=== PATIENT | male | born 1940 | race Caucasian/White ===

== ENCOUNTER 2020-03-07 11:04 | Emergency (ER) | payer SELFPAY ==
[~2020-03-07] VITALS: Ht 175.3 cm; Wt 112.0 kg
--- NOTE | 2020-03-07 11:46 | NUR ---
BIBS FROM HOME TO ER BED 6. AAOX4. NOT IN RESP DISTRESS, BREATHING EVEN AND UNLABORED. AMBULATORY. CAME IN FOR L & R ABDOMINAL PAIN X 7 DAYS. PER PT, HE STARTED ON A DIET PROGRAM AND WAS GIVEN "WATER PILLS". WHEN HE TOOK IT THAT IS WHEN THE PAIN STARTED. PAIN IS RATED 8/10 ACHING CONSTANT. PT HAVENT HAD A BM FOR THE PAST 7 DAYS. STATES THAT HE HASNT BEEN EATING AND REPORTS THAT HE IS FEELING WEAK. AWAITING MD FOR EVAL.
[2020-03-07 12:31] LABS: BASOPHILS % (AUTO) 0.1 % (0.0-2.0); EOSINOPHILS % (AUTO) 0.1 % (0.0-6.0); HEMATOCRIT 44 % (39-51); HEMOGLOBIN 14.4 g/dL (13.5-17.5); LYMPHOCYTES # (AUTO) 0.9 /CMM (0.8-4.8); LYMPHOCYTES % (AUTO) 8.9 % (20.0-44.0); MEAN CORPUSCULAR HGB CONC 33 g/dl (31.0-36.0); MEAN CORPUSCULAR VOLUME 88 fL (80-96); MONOCYTES # (AUTO) 1.1 /CMM (0.1-1.30); NEUTROPHILS # (AUTO) 8.2 /CMM (1.8-8.9); NEUTROPHILS % (AUTO) 79.9 % (43.0-81.0); PLATELET COUNT (AUTO) 141 /CMM (150-450); RED BLOOD CELL COUNT(AUTO) 4.99 MIL/uL (4.5-6.0); WHITE BLOOD COUNT (AUTO) 10.2 K/uL (4.3-11.0)
[2020-03-07 12:38] LABS: CALCIUM, SERUM 9.4 mg/dL (8.5-10.1); CARBON DIOXIDE 20 mmol/L (21-32); CHLORIDE 90 mmol/L (98-107); GLUCOSE 176 mg/dL (74-106); SODIUM SERUM 122 mmol/L (136-145); UREA NITROGEN, BLOOD 14 mg/dL (7-18)
[2020-03-07 12:51] LABS: ALKALINE PHOSPHATASE 55 U/L (46-116); ASPARTATE AMINOTRANSFERASE 29 U/L (15-37); BILIRUBIN,DIRECT 0.5 mg/dL (0.0-0.2); BILIRUBIN,TOTAL 1.9 mg/dL (0.2-1.0)
[2020-03-07 12:52] LABS: ALANINE AMINOTRANSFERASE 28 U/L (12-78); ALBUMIN 4.1 g/dL (3.4-5.0); LIPASE 63 U/L (73-393); TOTAL PROTEIN, SERUM 8.6 g/dL (6.4-8.2)
[2020-03-07 13:21] LABS: APPEARANCE,URINE Clear (CLEAR); BILIRUBIN,URINE Negative (NEGATIVE); BLOOD, URINE Trace-lysed Ery/uL (NEGATIVE); COLOR,URINE Yellow (YELLOW); KETONES,URINE Trace (NEGATIVE); LEUKOCYTE ESTERASE ,URINE Negative (NEGATIVE); NITRITE, URINE Negative (NEGATIVE); PH,URINE 5.5 (5.0-8.0); PROTEIN,URINE Negative (NEGATIVE); UGLUCOSE Negative (NEGATIVE); UROBILINOGEN,URINE 0.2 EU/dL (0.2)
[2020-03-07 13:23] LABS: BACTERIA,URINE Rare /HPF (None Seen); RBC,URINE 0-2 /HPF (0-2); SQUAMOUS EPITHELIAL CELL,UR None Seen /HPF (None Seen); WBC,URINE 0-2 /HPF (0-3)
[2020-03-07] MEDS ORDERED: HYDROCODONE/APAP 5/325MG TABLET ONE (13:45)
[2020-03-07] MEDS: HYDROCODONE/APAP 5/325MG TABLET PO ONE (13:47)
--- NOTE | 2020-03-07 14:58 | NUR ---
Patient discharged to home in stable condition. Written and verbal after care instructions given. Patient verbalizes understanding of instruction. Pt ambulatory with a steady gait
[2020-03-07 14:59] VITALS: BP 151/94
== END 2020-03-07 14:59 | disposition home or self-care (01) ==
LOC: ER 11:04
DX: R00.2 Palpitations (principal); R42 Dizziness and giddiness; T50.5X5A Adverse effect of appetite depressants, initial encounter; R53.83 Other fatigue; N13.30 Unspecified hydronephrosis; K86.1 Other chronic pancreatitis; K57.30 Diverticulosis of large intestine without perforation or abscess without bleeding; K44.9 Diaphragmatic hernia without obstruction or gangrene; K40.90 Unilateral inguinal hernia, without obstruction or gangrene, not specified as recurrent; I10 Essential (primary) hypertension; E78.5 Hyperlipidemia, unspecified; E11.9 Type 2 diabetes mellitus without complications; E78.00 Pure hypercholesterolemia, unspecified; Y92.89 Other specified places as the place of occurrence of the external cause
CPT/HCPCS: 36415; 71045-TC; 80048-TC; 80076-TC; 81000-TC; 82962-TC; 83690-TC; 83880; 84484-TC; 85025-TC

== ENCOUNTER 2022-08-13 22:12 | Emergency (ER) | payer OTHER ==
[~2022-08-13] VITALS: Ht 175.3 cm; Wt 111.1 kg
--- NOTE | 2022-08-13 22:51 | NUR ---
BIB FROM A BAR TO ER BED 14. ALERT AND AWAKE ABLE TO ANSWER QUESTIONS. BROUGHT IN D/T PT SLID OF A BARSTOLL AND HIT THE BACK OF HIS HEAD ON A BAR STOOL. PT ADMITS TO KO. DENIES ANY BLOOD THINNER USE. PT ADMITS TO DRINKING. NO NOTED INJURY. AWAITING MD FOR EVAL
--- NOTE | 2022-08-13 23:10 | NUR ---
BS 188
--- NOTE | 2022-08-14 06:30 | NUR ---
pt requesting to be discharged home, Patient discharged to home in stable condition. Written and verbal after care instructions given. Patient verbalizes understanding of instruction.Patient is awake and alert to self, day, and place. pt ambulatory with a steady gait
[2022-08-14 06:59] VITALS: BP 119/65
== END 2022-08-14 06:30 | disposition home or self-care (01) ==
LOC: ER 22:17
DX: S00.03XA Contusion of scalp, initial encounter (principal); F10.129 Alcohol abuse with intoxication, unspecified; I10 Essential (primary) hypertension; E11.9 Type 2 diabetes mellitus without complications; E78.00 Pure hypercholesterolemia, unspecified; W22.8XXA Striking against or struck by other objects, initial encounter; Y93.89 Activity, other specified; Y92.89 Other specified places as the place of occurrence of the external cause; Y99.8 Other external cause status
CPT/HCPCS: 70450-TC; 72125-TC; 82962-TC

== ENCOUNTER 2023-06-14 02:45 | Inpatient (IN) | payer MEDICARE, OTHER ==
[2023-06-14] VITALS (75 sets, daily range): BP systolic 38–132; BP diastolic 19–89; TEMP 97.2–98.9; O2SAT 87–99
[~2023-06-14] VITALS: Ht 175.3 cm; Wt 101.6 kg
[2023-06-14] MEDS ORDERED: methylPREDNISolone SOD SUCC 125 MG/2ML VIAL ONE (02:59)
[2023-06-14] MEDS ORDERED: IPRATROPIUM NEB FS 0.5 MG/2.5 ML AMPUL.NEB NEB ONE (03:00)
[2023-06-14] MEDS ORDERED: methylPREDNISolone SOD SUCC 125 MG/2ML VIAL IV ONE (03:00)
[2023-06-14] MEDS ORDERED: ALBUTEROL FS 2.5 MG/3 ML VIAL.NEB NEB ONE (03:00)
[2023-06-14 03:17] LABS: ABG BASE EXCESS -4.5 mmol/L; ABG OXYGEN SATURATION 99.2 % (92.0-98.5); ABG PCO2 20.7 mmHg (35.0-45.0); ABG PO2 220.3 mmHg (75.0-100.0); ABG TOTAL HEMOGLOBIN 14.1 G/dL (13.5-18.0); MetHb 0.4 % (0.0-1.5); O2Hb 98.8 % (94.0-97.0); SITE, ABG Right Radial
[2023-06-14] MEDS ORDERED: ALBUTEROL FS 2.5 MG/3 ML VIAL.NEB ONE (03:18)
[2023-06-14] MEDS ORDERED: IPRATROPIUM NEB FS 0.5 MG/2.5 ML AMPUL.NEB ONE (03:19)
[2023-06-14] MEDS ORDERED: IOHEXOL-350 100 ML VIAL IV ONE (03:21)
[2023-06-14] MEDS ORDERED: CEFEPIME 1 GM in IV D5W 50 ML IV ONE (03:30)
[2023-06-14] MEDS ORDERED: VANCOMYCIN 1 GM in IV D5W 250 ML IV ONE (03:30)
[2023-06-14 03:48] LABS: BASOPHILS # (AUTO) 0.1 K/uL (0.0-0.2); BASOPHILS % (AUTO) 0.7 % (0.0-2.0); EOSINOPHILS % (AUTO) 0.2 % (0.0-6.0); HEMATOCRIT 41 % (39-51); HEMOGLOBIN 13.5 g/dL (13.5-17.5); LYMPHOCYTES # (AUTO) 0.3 K/uL (0.8-4.8); LYMPHOCYTES % (AUTO) 4.4 % (20.0-44.0); MEAN CORPUSCULAR HEMOGLOBIN 27 PG (26.0-33.0); MEAN CORPUSCULAR HGB CONC 33 g/dl (31.0-36.0); MEAN CORPUSCULAR VOLUME 81 fL (80-96); MONOCYTES # (AUTO) 0.6 K/uL (0.1-1.30); MONOCYTES % (AUTO) 7.9 % (2.0-12.0); NEUTROPHILS # (AUTO) 6.5 K/uL (1.8-8.9); NEUTROPHILS % (AUTO) 86.8 % (43.0-81.0); PLATELET COUNT (AUTO) 114 K/uL (150-450); RED CELL DISTRIBUTION WIDTH 15.1 % (11.5-15.0); WHITE BLOOD COUNT (AUTO) 7.5 K/uL (4.3-11.0)
[2023-06-14 04:26] LABS: CALCIUM, SERUM 8.9 mg/dL (8.5-10.1); CARBON DIOXIDE 19 mmol/L (21-32); CHLORIDE 98 mmol/L (98-107); CREATININE 1.3 mg/dL (0.6-1.3); GLUCOSE 209 mg/dL (74-106); POTASSIUM 3.5 mmol/L (3.5-5.1); SODIUM SERUM 130 mmol/L (136-145); UREA NITROGEN, BLOOD 30 mg/dL (7-18)
[2023-06-14] MEDS ORDERED: MIDAZOLAM HCL 100 MG in IV NS 0.9% 80 ML IV PRN ×2 (04:30→07:00)
[2023-06-14] MEDS ORDERED: ETOMIDATE 2 MG/ML VIAL IV ONE ×2 (04:30→17:21)
[2023-06-14] MEDS ORDERED: ROCURONIUM BROMIDE 100 MG/10 ML VIAL IV ONE (04:30)
[2023-06-14] MEDS ORDERED: IV NS 0.9% 1,000 ML BAG IV ONE (04:30)
[2023-06-14] MEDS ORDERED: ACETAMINOPHEN ES 500 MG TABLET NG ONE (04:30)
[2023-06-14 04:36] LABS: ALANINE AMINOTRANSFERASE 28 U/L (12-78); ALBUMIN 3.3 g/dL (3.4-5.0); ALKALINE PHOSPHATASE 56 U/L (46-116); ASPARTATE AMINOTRANSFERASE 55 U/L (15-37); BILIRUBIN,DIRECT 0.6 mg/dL (0.0-0.2); BILIRUBIN,TOTAL 1.4 mg/dL (0.2-1.0); NT-PRO BNP 1320 pg/mL (0-125); TOTAL PROTEIN, SERUM 7.9 g/dL (6.4-8.2)
[2023-06-14] MEDS ORDERED: PROPOFOL 100 ML ONE (04:45)
[2023-06-14 04:48] LABS: LACTIC ACID 3.7 mmol/L (0.4-2.0)
[2023-06-14] MEDS ORDERED: AMIODARONE 150 MG/3 ML VIAL IV ONE ×2 (04:56→05:00)
[2023-06-14] MEDS ORDERED: RACEPINEPHRINE HCL 2.25% NEB 0.5 ML VIAL.NEB IH ONE (05:00)
[2023-06-14] MEDS ORDERED: PROPOFOL 100 ML IV PRN (05:00)
[2023-06-14] MEDS: AMIODARONE 450 MG in IV D5W 241 ML IV PRN ×2 (05:17→12:58)
[2023-06-14] MEDS ORDERED: CEFEPIME 1 GM VIAL ONE (05:20)
[2023-06-14] MEDS ORDERED: VANCOMYCIN 1 GM /D5W 250 ML PB IV ONE (05:20)
[2023-06-14] MEDS ORDERED: ACETAMINOPHEN ES 500 MG TABLET ONE (05:54)
[2023-06-14 05:59] LABS: ABG BASE EXCESS -14.3 mmol/L; ABG OXYGEN SATURATION 99.2 % (92.0-98.5); ABG PCO2 48.7 mmHg (35.0-45.0); ABG PO2 255.7 mmHg (75.0-100.0); ABG TOTAL HEMOGLOBIN 14.1 G/dL (13.5-18.0); COHb 0.3 % (0.5-1.5); MetHb 0.8 % (0.0-1.5); O2Hb 98.1 % (94.0-97.0); SITE, ABG Right Radial
[2023-06-14] MEDS ORDERED: DEXTROSE 50%-WATER 50 ML DISP.SYRIN IV PRN (06:00)
[2023-06-14] MEDS ORDERED: MAGNESIUM HYDROXIDE 30 ML UDC PO PRN (06:00)
[2023-06-14] MEDS ORDERED: ACETAMINOPHEN 325 MG TABLET PO PRN (06:00)
[2023-06-14] MEDS ORDERED: MAG HYDROX/AL HYDROX/SIMETH 30 ML UDC PO PRN (06:00)
[2023-06-14] MEDS ORDERED: ONDANSETRON HCL/PF 4 MG/2 ML VIAL IVP PRN (06:00)
[2023-06-14] MEDS ORDERED: ACETAMINOPHEN 650 MG/SUPP.RECT RC ONE (06:00)
[2023-06-14] MEDS ORDERED: IV NS 0.9% 1,000 ML IV ONE (06:00)
[2023-06-14] MEDS ORDERED: ENOXAPARIN SODIUM 100 MG/ML DISP.SYRIN SQ ONE ×2 (06:00→06:42)
[2023-06-14] MEDS ORDERED: ZOLPIDEM TARTRATE 5 MG TABLET PO PRN (06:00)
[2023-06-14] MEDS ORDERED: Z GUARD REMEDY 4 OZ OINT TP PRN (06:00)
[2023-06-14] MEDS ORDERED: ACETAMINOPHEN 650 MG/SUPP.RECT RC PRN (06:00)
[2023-06-14 06:44] LABS: THYROID STIMULATING HORMONE 1.092 uIU/mL (0.358-3.74)
[2023-06-14] MEDS ORDERED: FENTANYL CITRAT IV 2,500 MCG in IV NS 0.9% 200 ML IV PRN (07:00)
[2023-06-14] MEDS ORDERED: MORPHINE SULFATE INJ 4 MG/ML DISP.SYRIN IV PRN (07:30)
[2023-06-14] MEDS ORDERED: BENA40TA67 PO (07:41)
[2023-06-14] MEDS ORDERED: VANCOMYCIN 500 MG in IV D5W 100 ML IV ONE (08:00)
[2023-06-14] MEDS: dexaMETHasone SOD PHOSPHATE 10 MG/ML VIAL IV SCH ×2 (08:03→09:00)
[2023-06-14] MEDS: NOREPINEPHRINE 8 MG in IV NS 0.9% 242 ML IV PRN ×3 (08:20→11:05)
[2023-06-14] MEDS ORDERED: NOREPINEPHRINE 8 MG in IV NS 0.9% 242 ML IV PRN (08:30)
[2023-06-14] MEDS ORDERED: IV D5/ 0.9% NACL 1,000 ML IV PRN (10:00)
[2023-06-14] MEDS ORDERED: AMIODARONE 450 MG in IV D5W 250 ML IV PRN (10:00)
[2023-06-14 10:14] LABS: ABG BASE EXCESS -23.6 mmol/L; ABG OXYGEN SATURATION 96.8 % (92.0-98.5); ABG PCO2 37.1 mmHg (35.0-45.0); ABG PH 6.948 (7.350-7.450); ABG PO2 131.5 mmHg (75.0-100.0); ABG TOTAL HEMOGLOBIN 14.1 G/dL (13.5-18.0); COHb 0.3 % (0.5-1.5); MetHb 0.3 % (0.0-1.5); O2Hb 96.2 % (94.0-97.0); PEEP,BG 5 cm H2O; SITE, ABG Right Radial; VENT MODE, BG AC 80%; VT, ABG 500 mL
[2023-06-14] MEDS ORDERED: SODIUM BICARBONATE SYR 50 MEQ/50 ML DISP.SYRIN ONE (10:27)
[2023-06-14] MEDS ORDERED: SODIUM BICARBONATE SYR 50 MEQ/50 ML DISP.SYRIN IV ONE ×2 (11:30→16:00)
[2023-06-14] MEDS: PHENYLEPHRINE 100 MG in IV NS 0.9% 240 ML IV PRN ×2 (11:30→18:26)
[2023-06-14] MEDS: BLOOD SUGAR DIAGNOSTIC 1 EACH STRIP IN SCH ×3 (12:00→18:26)
[2023-06-14] MEDS: INSULIN REGULAR, HUMAN 100 UNIT/ML 3 ML VIAL SQ PRN ×2 (13:48→18:27)
[2023-06-14] MEDS: PANTOPRAZOLE 40 MG VIAL IV SCH (13:54)
[2023-06-14] MEDS ORDERED: NOREPINEPHRINE 32 MG in IV NS 0.9% 218 ML IV PRN (14:00)
[2023-06-14] MEDS: CEFEPIME 2 GM in IV D5W 100 ML IV SCH ×2 (14:04→22:51)
[2023-06-14 15:22] LABS: ABG BASE EXCESS -19.3 mmol/L; ABG PCO2 37.9 mmHg (35.0-45.0); ABG PH 7.054 (7.350-7.450); ABG PO2 101.8 mmHg (75.0-100.0); ABG TOTAL HEMOGLOBIN 14.3 G/dL (13.5-18.0); AaDO2 573.3 mmHg; COHb 0.3 % (0.5-1.5); MetHb 0.5 % (0.0-1.5); O2Hb 95.2 % (94.0-97.0); SITE, ABG Right Radial
[2023-06-14] MEDS: PROPOFOL 100 ML IV PRN ×2 (16:16→21:09)
[2023-06-14] MEDS: Sodium Bicarbonate 150 MEQ in IV D5W 1,000 ML IV SCH (16:49)
[2023-06-14] MEDS ORDERED: ROCURONIUM BROMIDE 50 MG/5 ML IV ONE (17:21)
[2023-06-14] MEDS: ENOXAPARIN SODIUM 100 MG/ML DISP.SYRIN SQ SCH (21:28)
[2023-06-14 22:37] LABS: BASOPHILS % (AUTO) 0.1 % (0.0-2.0); EOSINOPHILS # (AUTO) 0.1 K/uL (0.0-0.7); EOSINOPHILS % (AUTO) 0.5 % (0.0-6.0); HEMATOCRIT 42 % (39-51); HEMOGLOBIN 13.2 g/dL (13.5-17.5); LYMPHOCYTES # (AUTO) 0.7 K/uL (0.8-4.8); MEAN CORPUSCULAR HEMOGLOBIN 26 PG (26.0-33.0); MEAN CORPUSCULAR HGB CONC 32 g/dl (31.0-36.0); MEAN CORPUSCULAR VOLUME 83 fL (80-96); MONOCYTES # (AUTO) 1.3 K/uL (0.1-1.30); MONOCYTES % (AUTO) 7.6 % (2.0-12.0); NEUTROPHILS # (AUTO) 14.7 K/uL (1.8-8.9); NEUTROPHILS % (AUTO) 87.8 % (43.0-81.0); PLATELET COUNT (AUTO) 150 K/uL (150-450); RED BLOOD CELL COUNT(AUTO) 5.05 MIL/uL (4.5-6.0); WHITE BLOOD COUNT (AUTO) 16.8 K/uL (4.3-11.0)
[2023-06-14 22:49] LABS: CALCIUM, SERUM 7.8 mg/dL (8.5-10.1); CARBON DIOXIDE 14 mmol/L (21-32); CHLORIDE 101 mmol/L (98-107); CREATININE 2.7 mg/dL (0.6-1.3); GLUCOSE 371 mg/dL (74-106); POTASSIUM 3.6 mmol/L (3.5-5.1); SODIUM SERUM 136 mmol/L (136-145); UREA NITROGEN, BLOOD 41 mg/dL (7-18)
[2023-06-15] VITALS (92 sets, daily range): BP systolic 73–122; BP diastolic 58–96; TEMP 96.8–98.5; O2SAT 65–100
[2023-06-15] MEDS: BLOOD SUGAR DIAGNOSTIC 1 EACH STRIP IN SCH ×4 (00:44→23:57)
[2023-06-15] MEDS: INSULIN REGULAR, HUMAN 100 UNIT/ML 3 ML VIAL SQ PRN ×3 (00:47→18:20)
[2023-06-15 01:11] LABS: ABG BASE EXCESS -7.1 mmol/L; ABG OXYGEN SATURATION 98.5 % (92.0-98.5); ABG PCO2 24.3 mmHg (35.0-45.0); ABG PO2 132.2 mmHg (75.0-100.0); ABG TOTAL HEMOGLOBIN 14.2 G/dL (13.5-18.0); AaDO2 556.5 mmHg; COHb 0.1 % (0.5-1.5); MetHb 0.3 % (0.0-1.5); O2Hb 98.1 % (94.0-97.0); PEEP,BG 0 cm H2O; SITE, ABG Right Radial
[2023-06-15] MEDS: PROPOFOL 100 ML IV PRN ×5 (01:26→22:09)
[2023-06-15] MEDS: PHENYLEPHRINE 100 MG in IV NS 0.9% 240 ML IV PRN ×4 (01:39→23:59)
[2023-06-15 05:07] LABS: ABG OXYGEN SATURATION 97.6 % (92.0-98.5); ABG PCO2 24.1 mmHg (35.0-45.0); ABG PH 7.463 (7.350-7.450); ABG PO2 100.2 mmHg (75.0-100.0); ABG TOTAL HEMOGLOBIN 14.1 G/dL (13.5-18.0); AaDO2 588.7 mmHg; COHb 0.2 % (0.5-1.5); MetHb 0.3 % (0.0-1.5); O2Hb 97.1 % (94.0-97.0); PEEP,BG 0 cm H2O; SITE, ABG Right Radial
[2023-06-15 05:23] LABS: BASOPHILS % (AUTO) 0.1 % (0.0-2.0); EOSINOPHILS # (AUTO) 0.2 K/uL (0.0-0.7); EOSINOPHILS % (AUTO) 1.3 % (0.0-6.0); HEMATOCRIT 40 % (39-51); HEMOGLOBIN 12.9 g/dL (13.5-17.5); LYMPHOCYTES # (AUTO) 0.6 K/uL (0.8-4.8); LYMPHOCYTES % (AUTO) 3.8 % (20.0-44.0); MEAN CORPUSCULAR HEMOGLOBIN 26 PG (26.0-33.0); MEAN CORPUSCULAR HGB CONC 32 g/dl (31.0-36.0); MEAN CORPUSCULAR VOLUME 81 fL (80-96); MONOCYTES # (AUTO) 1.1 K/uL (0.1-1.30); NEUTROPHILS # (AUTO) 13.7 K/uL (1.8-8.9); NEUTROPHILS % (AUTO) 87.8 % (43.0-81.0); PLATELET COUNT (AUTO) 143 K/uL (150-450); RED CELL DISTRIBUTION WIDTH 15.7 % (11.5-15.0); WHITE BLOOD COUNT (AUTO) 15.7 K/uL (4.3-11.0)
[2023-06-15 05:58] LABS: ALANINE AMINOTRANSFERASE 480 U/L (12-78); ALBUMIN 2.1 g/dL (3.4-5.0); ALKALINE PHOSPHATASE 52 U/L (46-116); ASPARTATE AMINOTRANSFERASE 804 U/L (15-37); CALCIUM, SERUM 7.6 mg/dL (8.5-10.1); CARBON DIOXIDE 18 mmol/L (21-32); CHLORIDE 101 mmol/L (98-107); CREATININE 2.8 mg/dL (0.6-1.3); GLUCOSE 350 mg/dL (74-106); MAGNESIUM 2.3 mg/dL (1.8-2.4); PHOSPHORUS 2.7 mg/dL (2.5-4.9); POTASSIUM 3.1 mmol/L (3.5-5.1); SODIUM SERUM 135 mmol/L (136-145); TOTAL PROTEIN, SERUM 6.1 g/dL (6.4-8.2); UREA NITROGEN, BLOOD 46 mg/dL (7-18)
[2023-06-15 06:03] LABS: CHOLESTEROL 92 mg/dL (<200); CREATINE KINASE, TOTAL 1419 U/L (39-308); HDL CHOLESTEROL 33 mg/dL (40-60); LDL 45 mg/dL (0-99); THYROID STIMULATING HORMONE 0.293 uIU/mL (0.358-3.74); TRIGLYCERIDES 167 mg/dL (30-150); URIC ACID 7.3 mg/dL (2.6-7.2)
[2023-06-15] MEDS: Sodium Bicarbonate 150 MEQ in IV D5W 1,000 ML IV SCH (06:40)
[2023-06-15] MEDS ORDERED: VANCOMYCIN 1.25 GM in IV D5W 250 ML IV SCH (08:00)
[2023-06-15] MEDS ORDERED: EPINEPHRINE (1:10,000) SYRINGE 1 MG/10 ML DISP.SYRIN IVP ONE (08:15)
[2023-06-15] MEDS ORDERED: SODIUM BICARBONATE SYR 50 MEQ/50 ML DISP.SYRIN IV ONE (08:16)
[2023-06-15] MEDS ORDERED: ENOXAPARIN SODIUM 40 MG/0.4 ML DISP.SYRIN SQ SCH (09:00)
[2023-06-15] MEDS: dexaMETHasone SOD PHOSPHATE 10 MG/ML VIAL IV SCH (09:04)
[2023-06-15] MEDS: PANTOPRAZOLE 40 MG VIAL IV SCH (09:04)
[2023-06-15] MEDS: ENOXAPARIN SODIUM 100 MG/ML DISP.SYRIN SQ SCH ×2 (09:08→22:01)
[2023-06-15] MEDS ORDERED: MAG HYDROX/AL HYDROX/SIMETH 30 ML UDC NG PRN (11:04)
[2023-06-15] MEDS ORDERED: MAGNESIUM HYDROXIDE 30 ML UDC NG PRN (11:04)
[2023-06-15 14:41] LABS: ABG OXYGEN SATURATION 95.2 % (92.0-98.5); ABG PCO2 26.7 mmHg (35.0-45.0); ABG PH 7.489 (7.350-7.450); ABG PO2 76.8 mmHg (75.0-100.0); ABG TOTAL HEMOGLOBIN 13.8 G/dL (13.5-18.0); AaDO2 321.6 mmHg; COHb 0.3 % (0.5-1.5); MetHb 0.2 % (0.0-1.5); O2Hb 94.7 % (94.0-97.0); SITE, ABG Right Brachial; VENT MODE, BG AC 22 500 60% +0
[2023-06-15] MEDS: CEFEPIME 1 GM in IV D5W 50 ML IV SCH (22:00)
[2023-06-15 22:11] LABS: APPEARANCE,URINE SLIGHTLY CLOUDY (CLEAR); BILIRUBIN,URINE NEGATIVE (NEGATIVE); BLOOD, URINE 3+ Ery/uL (NEGATIVE); COLOR,URINE YELLOW (YELLOW); KETONES,URINE NEGATIVE (NEGATIVE); LEUKOCYTE ESTERASE ,URINE NEGATIVE (NEGATIVE); NITRITE, URINE NEGATIVE (NEGATIVE); PH,URINE 5.5 (5.0-8.0); PROTEIN,URINE 1+ mg/dl (NEGATIVE); UGLUCOSE NEGATIVE (NEGATIVE); UROBILINOGEN,URINE 0.2 EU/dL (0.2)
[2023-06-15 22:13] LABS: CREATININE, URINE 53.9 MG/DL (30.0-125.0); URINE TOTAL PROTEIN 56.7 mg/dL (0-11.9)
[2023-06-15 22:23] LABS: ADD URINE CULTURE NO; BACTERIA,URINE None seen /HPF (None Seen); RBC,URINE 51-80 /HPF (0-2); WBC,URINE 0-2 /HPF (0-3)
[2023-06-15 22:24] LABS: COARSE GRANULAR CASTS,URINE Many /LPF (None Seen); FINE GRANULAR CASTS,URINE Few /LPF (None Seen); URINE AMORPHOUS URATE Many /HPF (None Seen)
[2023-06-15 23:42] LABS: EOSINOPHIL,URINE None Seen
[2023-06-16] VITALS (89 sets, daily range): BP systolic 89–125; BP diastolic 70–95; TEMP 96.7–97.8; O2SAT 94–97
[2023-06-16] MEDS: INSULIN REGULAR, HUMAN 100 UNIT/ML 3 ML VIAL SQ PRN ×4 (00:03→17:28)
[2023-06-16] MEDS: PROPOFOL 100 ML IV PRN ×5 (02:06→20:27)
[2023-06-16 04:21] LABS: BASOPHILS % (AUTO) 0.1 % (0.0-2.0); EOSINOPHILS % (AUTO) 0.1 % (0.0-6.0); HEMATOCRIT 39 % (39-51); HEMOGLOBIN 12.7 g/dL (13.5-17.5); LYMPHOCYTES # (AUTO) 0.7 K/uL (0.8-4.8); LYMPHOCYTES % (AUTO) 4.3 % (20.0-44.0); MEAN CORPUSCULAR HEMOGLOBIN 26 PG (26.0-33.0); MEAN CORPUSCULAR HGB CONC 33 g/dl (31.0-36.0); MEAN CORPUSCULAR VOLUME 80 fL (80-96); MONOCYTES # (AUTO) 1.3 K/uL (0.1-1.30); MONOCYTES % (AUTO) 7.4 % (2.0-12.0); NEUTROPHILS # (AUTO) 15.3 K/uL (1.8-8.9); NEUTROPHILS % (AUTO) 88.1 % (43.0-81.0); PLATELET COUNT (AUTO) 124 K/uL (150-450); RED BLOOD CELL COUNT(AUTO) 4.85 MIL/uL (4.5-6.0); RED CELL DISTRIBUTION WIDTH 15.8 % (11.5-15.0); WHITE BLOOD COUNT (AUTO) 17.4 K/uL (4.3-11.0)
[2023-06-16 04:37] LABS: CALCIUM, SERUM 8.1 mg/dL (8.5-10.1); CARBON DIOXIDE 25 mmol/L (21-32); CHLORIDE 103 mmol/L (98-107); CREATININE 2.8 mg/dL (0.6-1.3); GLUCOSE 317 mg/dL (74-106); MAGNESIUM 2.2 mg/dL (1.8-2.4); PHOSPHORUS 2.8 mg/dL (2.5-4.9); SODIUM SERUM 140 mmol/L (136-145); UREA NITROGEN, BLOOD 55 mg/dL (7-18)
[2023-06-16 04:38] LABS: TRIGLYCERIDES 284 mg/dL (30-150)
[2023-06-16 04:47] LABS: POTASSIUM 2.8 mmol/L (3.5-5.1)
[2023-06-16] MEDS: BLOOD SUGAR DIAGNOSTIC 1 EACH STRIP IN SCH ×3 (05:08→17:25)
[2023-06-16] MEDS: POTASSIUM CL. PREMIX PERIPHER. 50 ML IV SCH ×4 (06:38→09:31)
[2023-06-16] MEDS: PHENYLEPHRINE 100 MG in IV NS 0.9% 240 ML IV PRN ×3 (07:35→23:10)
[2023-06-16] MEDS ORDERED: VANCOMYCIN 1.5 GM in IV D5W 500ml IV SCH (08:00)
[2023-06-16 08:06] LABS: PTH, INTACT 158 pg/mL (15-65)
[2023-06-16 08:08] LABS: ABG BASE EXCESS -0.3 mmol/L; ABG OXYGEN SATURATION 96.3 % (92.0-98.5); ABG PCO2 25.8 mmHg (35.0-45.0); ABG PH 7.526 (7.350-7.450); ABG TOTAL HEMOGLOBIN 14.1 G/dL (13.5-18.0); AaDO2 316.4 mmHg; COHb 0.4 % (0.5-1.5); MetHb 0.1 % (0.0-1.5); O2Hb 95.8 % (94.0-97.0); SITE, ABG Right Radial
[2023-06-16] MEDS: dexaMETHasone SOD PHOSPHATE 10 MG/ML VIAL IV SCH (08:28)
[2023-06-16] MEDS: PANTOPRAZOLE 40 MG VIAL IV SCH (08:29)
[2023-06-16] MEDS: ENOXAPARIN SODIUM 100 MG/ML DISP.SYRIN SQ SCH (09:10)
[2023-06-16] MEDS: CEFEPIME 1 GM in IV D5W 50 ML IV SCH ×2 (09:55→20:27)
[2023-06-16 11:07] LABS: *SPE A/G RATIO 0.7 (0.7-1.7); *SPE ALBUMIN 2.3 g/dL (2.9-4.4); *SPE ALPHA-1-GLOBULIN 0.4 g/dL (0.0-0.4); *SPE ALPHA-2-GLOBULIN 0.9 g/dL (0.4-1.0); *SPE BETA GLOBULIN 0.6 g/dL (0.7-1.3); *SPE GLOBULIN, TOTAL 3.1 g/dL (2.2-3.9); *SPE M-SPIKE Not Observed g/dL (Not Observed); *SPE PROTEIN TOTAL 5.4 g/dL (6.0-8.5); *SPEGAMMA GLOBULIN 1.2 g/dL (0.4-1.8)
[2023-06-16 12:27] LABS: CALCIUM, SERUM 8.4 mg/dL (8.5-10.1); CARBON DIOXIDE 23 mmol/L (21-32); CHLORIDE 103 mmol/L (98-107); CREATININE 2.5 mg/dL (0.6-1.3); GLUCOSE 381 mg/dL (74-106); POTASSIUM 3.1 mmol/L (3.5-5.1); SODIUM SERUM 138 mmol/L (136-145); UREA NITROGEN, BLOOD 54 mg/dL (7-18)
[2023-06-17] VITALS (85 sets, daily range): BP systolic 85–117; BP diastolic 64–95; TEMP 96.8–97.7; O2SAT 95–98
[2023-06-17] MEDS: BLOOD SUGAR DIAGNOSTIC 1 EACH STRIP IN SCH ×5 (00:21→23:40)
[2023-06-17] MEDS: INSULIN REGULAR, HUMAN 100 UNIT/ML 3 ML VIAL SQ PRN ×5 (00:23→23:42)
[2023-06-17] MEDS: PROPOFOL 100 ML IV PRN ×4 (01:44→20:22)
[2023-06-17 03:55] LABS: BASOPHILS % (AUTO) 0.1 % (0.0-2.0); EOSINOPHILS % (AUTO) 0.1 % (0.0-6.0); HEMATOCRIT 39 % (39-51); HEMOGLOBIN 12.6 g/dL (13.5-17.5); LYMPHOCYTES # (AUTO) 0.9 K/uL (0.8-4.8); LYMPHOCYTES % (AUTO) 5.9 % (20.0-44.0); MEAN CORPUSCULAR HEMOGLOBIN 26 PG (26.0-33.0); MEAN CORPUSCULAR HGB CONC 32 g/dl (31.0-36.0); MEAN CORPUSCULAR VOLUME 81 fL (80-96); MONOCYTES # (AUTO) 1.1 K/uL (0.1-1.30); MONOCYTES % (AUTO) 6.8 % (2.0-12.0); NEUTROPHILS # (AUTO) 13.5 K/uL (1.8-8.9); NEUTROPHILS % (AUTO) 87.1 % (43.0-81.0); PLATELET COUNT (AUTO) 122 K/uL (150-450); RED BLOOD CELL COUNT(AUTO) 4.81 MIL/uL (4.5-6.0); RED CELL DISTRIBUTION WIDTH 15.4 % (11.5-15.0); WHITE BLOOD COUNT (AUTO) 15.4 K/uL (4.3-11.0)
[2023-06-17 04:12] LABS: CALCIUM, SERUM 8.2 mg/dL (8.5-10.1); CARBON DIOXIDE 25 mmol/L (21-32); CHLORIDE 103 mmol/L (98-107); CREATININE 2.3 mg/dL (0.6-1.3); GLUCOSE 364 mg/dL (74-106); MAGNESIUM 2.4 mg/dL (1.8-2.4); PHOSPHORUS 2.4 mg/dL (2.5-4.9); SODIUM SERUM 139 mmol/L (136-145); UREA NITROGEN, BLOOD 57 mg/dL (7-18)
[2023-06-17] MEDS: dexaMETHasone SOD PHOSPHATE 10 MG/ML VIAL IV SCH (08:09)
[2023-06-17] MEDS: PANTOPRAZOLE 40 MG VIAL IV SCH (08:09)
[2023-06-17] MEDS ORDERED: POTASSIUM CL. PREMIX PERIPHER. 150 ML ONE (08:37)
[2023-06-17] MEDS: POTASSIUM CL. PREMIX PERIPHER. 50 ML IV SCH ×6 (08:40→15:23)
[2023-06-17 08:43] LABS: BILIRUBIN,DIRECT 0.8 mg/dL (0.0-0.2); BILIRUBIN,TOTAL 1.2 mg/dL (0.2-1.0)
[2023-06-17] MEDS ORDERED: ENOXAPARIN SODIUM 100 MG/ML DISP.SYRIN SQ SCH (09:00)
[2023-06-17] MEDS ORDERED: HEPARIN SODIUM, PORCINE 5000 UNITS/1 ML VIAL SQ SCH (09:00)
[2023-06-17] MEDS: CEFEPIME 1 GM in IV D5W 50 ML IV SCH (10:00)
[2023-06-17 10:45] LABS: ABG BASE EXCESS -0.8 mmol/L; ABG OXYGEN SATURATION 95.1 % (92.0-98.5); ABG PCO2 27.2 mmHg (35.0-45.0); ABG PH 7.505 (7.350-7.450); ABG PO2 76.3 mmHg (75.0-100.0); ABG TOTAL HEMOGLOBIN 13.6 G/dL (13.5-18.0); AaDO2 249.6 mmHg; COHb 0.3 % (0.5-1.5); MetHb 0.2 % (0.0-1.5); O2Hb 94.6 % (94.0-97.0); PEEP,BG 0 cm H2O; SITE, ABG Right Brachial; VT, ABG 475 mL
[2023-06-17] MEDS: PHENYLEPHRINE 100 MG in IV NS 0.9% 240 ML IV PRN (11:05)
[2023-06-17] MEDS ORDERED: NEUTRA PHOS 1 POWD.PACKET NG ONE (16:00)
[2023-06-17] MEDS ORDERED: VANCOMYCIN 1.25 GM in IV D5W 250 ML IV SCH (20:00)
[2023-06-17] MEDS: MEROPENEM 500 MG in IV NS 0.9% 50 ML IV SCH (21:20)
[2023-06-18] VITALS (93 sets, daily range): BP systolic 81–109; BP diastolic 59–80; TEMP 97–98.6; O2SAT 95–98
[2023-06-18] MEDS: PHENYLEPHRINE 100 MG in IV NS 0.9% 240 ML IV PRN ×2 (00:43→13:59)
[2023-06-18] MEDS: PROPOFOL 100 ML IV PRN ×5 (01:22→21:00)
[2023-06-18 04:20] LABS: BASOPHILS % (AUTO) 0.1 % (0.0-2.0); EOSINOPHILS % (AUTO) 0.1 % (0.0-6.0); HEMATOCRIT 39 % (39-51); HEMOGLOBIN 12.7 g/dL (13.5-17.5); LYMPHOCYTES # (AUTO) 1.4 K/uL (0.8-4.8); LYMPHOCYTES % (AUTO) 7.6 % (20.0-44.0); MEAN CORPUSCULAR HEMOGLOBIN 26 PG (26.0-33.0); MEAN CORPUSCULAR HGB CONC 32 g/dl (31.0-36.0); MEAN CORPUSCULAR VOLUME 81 fL (80-96); MONOCYTES # (AUTO) 1.9 K/uL (0.1-1.30); NEUTROPHILS # (AUTO) 15.3 K/uL (1.8-8.9); NEUTROPHILS % (AUTO) 82.2 % (43.0-81.0); PLATELET COUNT (AUTO) 139 K/uL (150-450); RED BLOOD CELL COUNT(AUTO) 4.85 MIL/uL (4.5-6.0); RED CELL DISTRIBUTION WIDTH 15.3 % (11.5-15.0); WHITE BLOOD COUNT (AUTO) 18.7 K/uL (4.3-11.0)
[2023-06-18 04:40] LABS: ALANINE AMINOTRANSFERASE 230 U/L (12-78); ALKALINE PHOSPHATASE 133 U/L (46-116); ASPARTATE AMINOTRANSFERASE 67 U/L (15-37); BILIRUBIN,TOTAL 0.9 mg/dL (0.2-1.0); CALCIUM, SERUM 8.5 mg/dL (8.5-10.1); CARBON DIOXIDE 27 mmol/L (21-32); CHLORIDE 109 mmol/L (98-107); CREATININE 1.9 mg/dL (0.6-1.3); GLUCOSE 289 mg/dL (74-106); MAGNESIUM 2.6 mg/dL (1.8-2.4); PHOSPHORUS 2.7 mg/dL (2.5-4.9); SODIUM SERUM 143 mmol/L (136-145); TOTAL PROTEIN, SERUM 6.1 g/dL (6.4-8.2); UREA NITROGEN, BLOOD 55 mg/dL (7-18)
[2023-06-18] MEDS: BLOOD SUGAR DIAGNOSTIC 1 EACH STRIP IN SCH ×3 (06:22→18:15)
[2023-06-18] MEDS: INSULIN REGULAR, HUMAN 100 UNIT/ML 3 ML VIAL SQ PRN ×3 (06:25→18:04)
[2023-06-18] MEDS: dexaMETHasone SOD PHOSPHATE 10 MG/ML VIAL IV SCH (08:19)
[2023-06-18] MEDS: PANTOPRAZOLE 40 MG VIAL IV SCH (08:20)
[2023-06-18] MEDS: MEROPENEM 500 MG in IV NS 0.9% 50 ML IV SCH ×2 (08:20→21:00)
[2023-06-18] MEDS: HEPARIN SODIUM, PORCINE 5000 UNITS/1 ML VIAL SQ SCH ×2 (08:29→20:43)
[2023-06-18] MEDS: PANTOPRAZOLE 40 MG/PACK PACK NG SCH (09:00)
[2023-06-19] VITALS (90 sets, daily range): BP systolic 77–122; BP diastolic 57–87; TEMP 97.4–99; O2SAT 93–100
[2023-06-19] MEDS: BLOOD SUGAR DIAGNOSTIC 1 EACH STRIP IN SCH ×4 (00:48→17:17)
[2023-06-19] MEDS: INSULIN REGULAR, HUMAN 100 UNIT/ML 3 ML VIAL SQ PRN ×4 (00:49→17:20)
[2023-06-19] MEDS: PROPOFOL 100 ML IV PRN ×4 (01:00→18:57)
[2023-06-19] MEDS: PHENYLEPHRINE 100 MG in IV NS 0.9% 240 ML IV PRN ×2 (02:43→16:07)
[2023-06-19 04:54] LABS: BASOPHILS % (AUTO) 0.2 % (0.0-2.0); EOSINOPHILS # (AUTO) 0.1 K/uL (0.0-0.7); EOSINOPHILS % (AUTO) 0.5 % (0.0-6.0); HEMATOCRIT 41 % (39-51); HEMOGLOBIN 13.2 g/dL (13.5-17.5); LYMPHOCYTES % (AUTO) 11.6 % (20.0-44.0); MEAN CORPUSCULAR HEMOGLOBIN 26 PG (26.0-33.0); MEAN CORPUSCULAR HGB CONC 32 g/dl (31.0-36.0); MEAN CORPUSCULAR VOLUME 82 fL (80-96); MONOCYTES # (AUTO) 1.5 K/uL (0.1-1.30); MONOCYTES % (AUTO) 8.7 % (2.0-12.0); NEUTROPHILS # (AUTO) 13.5 K/uL (1.8-8.9); PLATELET COUNT (AUTO) 141 K/uL (150-450); RED BLOOD CELL COUNT(AUTO) 5.02 MIL/uL (4.5-6.0); RED CELL DISTRIBUTION WIDTH 15.6 % (11.5-15.0); WHITE BLOOD COUNT (AUTO) 17.1 K/uL (4.3-11.0)
[2023-06-19 05:29] LABS: CALCIUM, SERUM 8.5 mg/dL (8.5-10.1); CARBON DIOXIDE 22 mmol/L (21-32); CHLORIDE 114 mmol/L (98-107); CREATININE 1.6 mg/dL (0.6-1.3); GLUCOSE 212 mg/dL (74-106); MAGNESIUM 2.8 mg/dL (1.8-2.4); PHOSPHORUS 3.3 mg/dL (2.5-4.9); POTASSIUM 4.2 mmol/L (3.5-5.1); SODIUM SERUM 145 mmol/L (136-145); UREA NITROGEN, BLOOD 56 mg/dL (7-18)
[2023-06-19] MEDS: GLUCERNA 1.2 1,000 ML BOTTLE NG PRN (06:01)
[2023-06-19] MEDS: PANTOPRAZOLE 40 MG/PACK PACK NG SCH (08:27)
[2023-06-19] MEDS: dexaMETHasone SOD PHOSPHATE 10 MG/ML VIAL IV SCH (08:27)
[2023-06-19] MEDS: HEPARIN SODIUM, PORCINE 5000 UNITS/1 ML VIAL SQ SCH ×2 (08:28→20:58)
[2023-06-19] MEDS ORDERED: IV NS 0.9% 1,000 ML IV ONE (08:30)
[2023-06-19] MEDS: MEROPENEM 500 MG in IV NS 0.9% 50 ML IV SCH (08:35)
[2023-06-19] MEDS: IV NS 0.9% 250 ML IV PRN (10:07)
[2023-06-19] MEDS: MEROPENEM 1 G in IV NS 0.9% 100 ML IV SCH (21:00)
[2023-06-20] VITALS (84 sets, daily range): BP systolic 83–122; BP diastolic 55–87; TEMP 97.5–98.5; O2SAT 90–99
[2023-06-20] MEDS: BLOOD SUGAR DIAGNOSTIC 1 EACH STRIP IN SCH ×4 (00:12→17:23)
[2023-06-20] MEDS: INSULIN REGULAR, HUMAN 100 UNIT/ML 3 ML VIAL SQ PRN ×5 (00:12→17:23)
[2023-06-20] MEDS: PROPOFOL 100 ML IV PRN ×2 (01:00→06:00)
[2023-06-20] MEDS: PHENYLEPHRINE 100 MG in IV NS 0.9% 240 ML IV PRN ×2 (01:21→11:58)
[2023-06-20 05:51] LABS: CALCIUM, SERUM 8.3 mg/dL (8.5-10.1); CARBON DIOXIDE 24 mmol/L (21-32); CHLORIDE 116 mmol/L (98-107); CREATININE 1.5 mg/dL (0.6-1.3); GLUCOSE 253 mg/dL (74-106); POTASSIUM 4.1 mmol/L (3.5-5.1); SODIUM SERUM 151 mmol/L (136-145); UREA NITROGEN, BLOOD 53 mg/dL (7-18)
[2023-06-20] MEDS: GLUCERNA 1.2 1,000 ML BOTTLE NG PRN (05:53)
[2023-06-20 07:38] LABS: BASOPHILS % (AUTO) 0.2 % (0.0-2.0); EOSINOPHILS % (AUTO) 0.1 % (0.0-6.0); HEMATOCRIT 40 % (39-51); HEMOGLOBIN 12.8 g/dL (13.5-17.5); LYMPHOCYTES # (AUTO) 1.6 K/uL (0.8-4.8); LYMPHOCYTES % (AUTO) 8.6 % (20.0-44.0); MEAN CORPUSCULAR HEMOGLOBIN 26 PG (26.0-33.0); MEAN CORPUSCULAR HGB CONC 32 g/dl (31.0-36.0); MEAN CORPUSCULAR VOLUME 83 fL (80-96); MONOCYTES # (AUTO) 1.4 K/uL (0.1-1.30); MONOCYTES % (AUTO) 7.7 % (2.0-12.0); NEUTROPHILS # (AUTO) 15.5 K/uL (1.8-8.9); NEUTROPHILS % (AUTO) 83.4 % (43.0-81.0); PLATELET COUNT (AUTO) 142 K/uL (150-450); RED BLOOD CELL COUNT(AUTO) 4.85 MIL/uL (4.5-6.0); RED CELL DISTRIBUTION WIDTH 16.3 % (11.5-15.0); WHITE BLOOD COUNT (AUTO) 18.5 K/uL (4.3-11.0)
[2023-06-20] MEDS: dexaMETHasone SOD PHOSPHATE 10 MG/ML VIAL IV SCH (08:05)
[2023-06-20] MEDS: MEROPENEM 1 G in IV NS 0.9% 100 ML IV SCH ×2 (08:06→21:53)
[2023-06-20] MEDS: HEPARIN SODIUM, PORCINE 5000 UNITS/1 ML VIAL SQ SCH ×2 (08:06→21:54)
[2023-06-20] MEDS: PANTOPRAZOLE 40 MG/PACK PACK NG SCH (08:06)
[2023-06-20] MEDS: MIDAZOLAM HCL 100 MG in IV NS 0.9% 80 ML IV PRN (11:41)
[2023-06-20] MEDS: FENTANYL CITRAT IV 2,500 MCG in IV NS 0.9% 200 ML IV PRN (11:42)
[2023-06-21] VITALS (79 sets, daily range): BP systolic 79–118; BP diastolic 55–84; TEMP 97.4–98.7; O2SAT 70–99
[2023-06-21] MEDS: INSULIN REGULAR, HUMAN 100 UNIT/ML 3 ML VIAL SQ PRN ×4 (00:32→17:47)
[2023-06-21] MEDS: BLOOD SUGAR DIAGNOSTIC 1 EACH STRIP IN SCH ×4 (00:33→17:45)
[2023-06-21 05:16] LABS: HEMATOCRIT 40 % (39-51); HEMOGLOBIN 12.6 g/dL (13.5-17.5); LYMPHOCYTES # (AUTO) 1.1 K/uL (0.8-4.8); LYMPHOCYTES % (AUTO) 7.2 % (20.0-44.0); MEAN CORPUSCULAR HEMOGLOBIN 26 PG (26.0-33.0); MEAN CORPUSCULAR HGB CONC 32 g/dl (31.0-36.0); MEAN CORPUSCULAR VOLUME 83 fL (80-96); MONOCYTES # (AUTO) 1.2 K/uL (0.1-1.30); MONOCYTES % (AUTO) 7.6 % (2.0-12.0); NEUTROPHILS % (AUTO) 85.2 % (43.0-81.0); PLATELET COUNT (AUTO) 119 K/uL (150-450); RED BLOOD CELL COUNT(AUTO) 4.77 MIL/uL (4.5-6.0); RED CELL DISTRIBUTION WIDTH 16.1 % (11.5-15.0); WHITE BLOOD COUNT (AUTO) 15.2 K/uL (4.3-11.0)
[2023-06-21 05:21] LABS: CARBON DIOXIDE 24 mmol/L (21-32); CHLORIDE 114 mmol/L (98-107); CREATININE 1.4 mg/dL (0.6-1.3); GLUCOSE 224 mg/dL (74-106); MAGNESIUM 2.4 mg/dL (1.8-2.4); PHOSPHORUS 4.4 mg/dL (2.5-4.9); POTASSIUM 4.2 mmol/L (3.5-5.1); SODIUM SERUM 147 mmol/L (136-145); UREA NITROGEN, BLOOD 56 mg/dL (7-18)
[2023-06-21] MEDS: MEROPENEM 1 G in IV NS 0.9% 100 ML IV SCH ×2 (09:22→21:38)
[2023-06-21] MEDS: PANTOPRAZOLE 40 MG/PACK PACK NG SCH (09:22)
[2023-06-21] MEDS: dexaMETHasone SOD PHOSPHATE 10 MG/ML VIAL IV SCH (09:22)
[2023-06-21] MEDS: HEPARIN SODIUM, PORCINE 5000 UNITS/1 ML VIAL SQ SCH ×2 (09:24→21:39)
[2023-06-21] MEDS: MIDAZOLAM HCL 100 MG in IV NS 0.9% 80 ML IV PRN (11:04)
[2023-06-21] MEDS: FENTANYL CITRAT IV 2,500 MCG in IV NS 0.9% 200 ML IV PRN (11:04)
[2023-06-21] MEDS: PHENYLEPHRINE 100 MG in IV NS 0.9% 240 ML IV PRN (19:15)
[2023-06-21] MEDS: GLUCERNA 1.2 1,000 ML BOTTLE NG PRN (19:25)
[2023-06-22] VITALS (84 sets, daily range): BP systolic 86–153; BP diastolic 48–101; TEMP 97.6–98.6; O2SAT 91–99
[2023-06-22] MEDS: BLOOD SUGAR DIAGNOSTIC 1 EACH STRIP IN SCH ×4 (00:20→17:37)
[2023-06-22] MEDS: INSULIN REGULAR, HUMAN 100 UNIT/ML 3 ML VIAL SQ PRN ×4 (00:23→17:38)
[2023-06-22 05:09] LABS: CARBON DIOXIDE 25 mmol/L (21-32); CHLORIDE 114 mmol/L (98-107); CREATININE 1.4 mg/dL (0.6-1.3); GLUCOSE 209 mg/dL (74-106); POTASSIUM 4.2 mmol/L (3.5-5.1); SODIUM SERUM 146 mmol/L (136-145); UREA NITROGEN, BLOOD 59 mg/dL (7-18)
[2023-06-22] MEDS: PANTOPRAZOLE 40 MG/PACK PACK NG SCH (09:17)
[2023-06-22] MEDS: dexaMETHasone SOD PHOSPHATE 10 MG/ML VIAL IV SCH (09:17)
[2023-06-22] MEDS: HEPARIN SODIUM, PORCINE 5000 UNITS/1 ML VIAL SQ SCH ×2 (09:17→21:00)
[2023-06-22] MEDS: MEROPENEM 1 G in IV NS 0.9% 100 ML IV SCH ×2 (09:18→21:00)
[2023-06-22] MEDS: NOREPINEPHRINE 8 MG in IV NS 0.9% 250ML IV PRN (10:02)
[2023-06-22] MEDS: FENTANYL CITRAT IV 2,500 MCG in IV NS 0.9% 200 ML IV PRN (11:00)
[2023-06-22] MEDS: MIDAZOLAM HCL 100 MG in IV NS 0.9% 80 ML IV PRN (13:34)
[2023-06-22] MEDS: GLUCERNA 1.2 1,000 ML BOTTLE NG PRN (18:14)
[2023-06-23] VITALS (94 sets, daily range): BP systolic 96–127; BP diastolic 58–82; TEMP 98–98.6; O2SAT 92–100
[2023-06-23] MEDS: BLOOD SUGAR DIAGNOSTIC 1 EACH STRIP IN SCH ×4 (00:07→17:33)
[2023-06-23] MEDS: INSULIN REGULAR, HUMAN 100 UNIT/ML 3 ML VIAL SQ PRN ×5 (00:12→23:59)
[2023-06-23 03:55] LABS: BASOPHILS % (AUTO) 0.1 % (0.0-2.0); HEMATOCRIT 37 % (39-51); HEMOGLOBIN 11.8 g/dL (13.5-17.5); LYMPHOCYTES # (AUTO) 0.8 K/uL (0.8-4.8); MEAN CORPUSCULAR HEMOGLOBIN 26 PG (26.0-33.0); MEAN CORPUSCULAR HGB CONC 32 g/dl (31.0-36.0); MEAN CORPUSCULAR VOLUME 83 fL (80-96); MONOCYTES # (AUTO) 0.8 K/uL (0.1-1.30); MONOCYTES % (AUTO) 5.2 % (2.0-12.0); NEUTROPHILS # (AUTO) 13.7 K/uL (1.8-8.9); NEUTROPHILS % (AUTO) 89.7 % (43.0-81.0); PLATELET COUNT (AUTO) 105 K/uL (150-450); RED BLOOD CELL COUNT(AUTO) 4.46 MIL/uL (4.5-6.0); RED CELL DISTRIBUTION WIDTH 16.3 % (11.5-15.0); WHITE BLOOD COUNT (AUTO) 15.3 K/uL (4.3-11.0)
[2023-06-23 04:13] LABS: CALCIUM, SERUM 8.1 mg/dL (8.5-10.1); CARBON DIOXIDE 25 mmol/L (21-32); CHLORIDE 111 mmol/L (98-107); CREATININE 1.4 mg/dL (0.6-1.3); GLUCOSE 243 mg/dL (74-106); MAGNESIUM 2.5 mg/dL (1.8-2.4); PHOSPHORUS 4.3 mg/dL (2.5-4.9); POTASSIUM 4.7 mmol/L (3.5-5.1); SODIUM SERUM 143 mmol/L (136-145); UREA NITROGEN, BLOOD 60 mg/dL (7-18)
[2023-06-23] MEDS: NOREPINEPHRINE 8 MG in IV NS 0.9% 250ML IV PRN (05:02)
[2023-06-23] MEDS: IV NS 0.9% 250 ML IV PRN (05:03)
[2023-06-23] MEDS: dexaMETHasone SOD PHOSPHATE 10 MG/ML VIAL IV SCH (08:51)
[2023-06-23] MEDS: HEPARIN SODIUM, PORCINE 5000 UNITS/1 ML VIAL SQ SCH ×2 (08:52→21:02)
[2023-06-23] MEDS: MEROPENEM 1 G in IV NS 0.9% 100 ML IV SCH ×2 (08:53→21:00)
[2023-06-23] MEDS: PANTOPRAZOLE 40 MG/PACK PACK NG SCH (08:53)
[2023-06-23] MEDS: FENTANYL CITRAT IV 2,500 MCG in IV NS 0.9% 200 ML IV PRN (11:08)
[2023-06-23] MEDS: MIDAZOLAM HCL 100 MG in IV NS 0.9% 80 ML IV PRN (11:10)
[2023-06-23] MEDS ORDERED: KETAMINE HCL (500MG/10ML) 50 MG/ML VIAL ONE (15:20)
[2023-06-23] MEDS: GLUCERNA 1.2 1,000 ML BOTTLE NG PRN (15:45)
[2023-06-23] MEDS ORDERED: KETAMINE HCL (500MG/10ML) 50 MG/ML VIAL IM ONE (16:00)
[2023-06-24] VITALS (79 sets, daily range): BP systolic 87–132; BP diastolic 57–88; TEMP 97.9–98.5; O2SAT 93–98
[2023-06-24] MEDS ORDERED: NOREPINEPHRINE 32 MG in IV NS 0.9% 218 ML IV PRN (02:00)
[2023-06-24] MEDS: BLOOD SUGAR DIAGNOSTIC 1 EACH STRIP IN SCH ×4 (06:04→17:42)
[2023-06-24] MEDS: INSULIN REGULAR, HUMAN 100 UNIT/ML 3 ML VIAL SQ PRN ×3 (06:06→17:41)
[2023-06-24] MEDS: dexaMETHasone SOD PHOSPHATE 10 MG/ML VIAL IV SCH (08:37)
[2023-06-24] MEDS: PANTOPRAZOLE 40 MG/PACK PACK NG SCH (08:37)
[2023-06-24] MEDS: HEPARIN SODIUM, PORCINE 5000 UNITS/1 ML VIAL SQ SCH ×2 (08:41→21:33)
[2023-06-24] MEDS: MEROPENEM 1 G in IV NS 0.9% 100 ML IV SCH ×2 (08:42→21:01)
[2023-06-24 09:30] LABS: BASOPHILS % (AUTO) 0.1 % (0.0-2.0); EOSINOPHILS % (AUTO) 0.1 % (0.0-6.0); HEMATOCRIT 36 % (39-51); HEMOGLOBIN 11.3 g/dL (13.5-17.5); LYMPHOCYTES # (AUTO) 0.7 K/uL (0.8-4.8); LYMPHOCYTES % (AUTO) 5.8 % (20.0-44.0); MEAN CORPUSCULAR HEMOGLOBIN 26 PG (26.0-33.0); MEAN CORPUSCULAR HGB CONC 31 g/dl (31.0-36.0); MEAN CORPUSCULAR VOLUME 83 fL (80-96); MONOCYTES # (AUTO) 0.8 K/uL (0.1-1.30); MONOCYTES % (AUTO) 6.5 % (2.0-12.0); NEUTROPHILS # (AUTO) 10.9 K/uL (1.8-8.9); NEUTROPHILS % (AUTO) 87.5 % (43.0-81.0); PLATELET COUNT (AUTO) 102 K/uL (150-450); RED BLOOD CELL COUNT(AUTO) 4.35 MIL/uL (4.5-6.0); WHITE BLOOD COUNT (AUTO) 12.5 K/uL (4.3-11.0)
[2023-06-24 09:43] LABS: CALCIUM, SERUM 8.4 mg/dL (8.5-10.1); CREATININE 1.3 mg/dL (0.6-1.3); MAGNESIUM 2.4 mg/dL (1.8-2.4); PHOSPHORUS 3.7 mg/dL (2.5-4.9); POTASSIUM 4.7 mmol/L (3.5-5.1)
[2023-06-24] MEDS: FENTANYL CITRAT IV 2,500 MCG in IV NS 0.9% 200 ML IV PRN (11:42)
[2023-06-24] MEDS: MIDAZOLAM HCL 100 MG in IV NS 0.9% 80 ML IV PRN (11:43)
[2023-06-25] VITALS (37 sets, daily range): BP systolic 78–120; BP diastolic 53–81; TEMP 96.4–97.7; O2SAT 95–98
[2023-06-25] MEDS: BLOOD SUGAR DIAGNOSTIC 1 EACH STRIP IN SCH ×4 (00:19→18:54)
[2023-06-25] MEDS: INSULIN REGULAR, HUMAN 100 UNIT/ML 3 ML VIAL SQ PRN ×4 (00:20→18:58)
[2023-06-25 07:36] LABS: HEMATOCRIT 37 % (39-51); HEMOGLOBIN 11.5 g/dL (13.5-17.5); LYMPHOCYTES # (AUTO) 0.6 K/uL (0.8-4.8); LYMPHOCYTES % (AUTO) 6.8 % (20.0-44.0); MEAN CORPUSCULAR HEMOGLOBIN 26 PG (26.0-33.0); MEAN CORPUSCULAR HGB CONC 31 g/dl (31.0-36.0); MEAN CORPUSCULAR VOLUME 85 fL (80-96); MONOCYTES # (AUTO) 0.5 K/uL (0.1-1.30); MONOCYTES % (AUTO) 6.3 % (2.0-12.0); NEUTROPHILS # (AUTO) 7.5 K/uL (1.8-8.9); NEUTROPHILS % (AUTO) 86.9 % (43.0-81.0); PLATELET COUNT (AUTO) 76 K/uL (150-450); RED BLOOD CELL COUNT(AUTO) 4.34 MIL/uL (4.5-6.0); RED CELL DISTRIBUTION WIDTH 16.1 % (11.5-15.0); WHITE BLOOD COUNT (AUTO) 8.6 K/uL (4.3-11.0)
[2023-06-25 07:52] LABS: ALBUMIN 1.7 g/dL (3.4-5.0); BILIRUBIN,TOTAL 0.6 mg/dL (0.2-1.0); CALCIUM, SERUM 8.2 mg/dL (8.5-10.1); CREATININE 1.2 mg/dL (0.6-1.3); MAGNESIUM 2.5 mg/dL (1.8-2.4); PHOSPHORUS 4.1 mg/dL (2.5-4.9); POTASSIUM 4.9 mmol/L (3.5-5.1); TOTAL PROTEIN, SERUM 5.6 g/dL (6.4-8.2)
[2023-06-25] MEDS: HEPARIN SODIUM, PORCINE 5000 UNITS/1 ML VIAL SQ SCH (08:44)
[2023-06-25] MEDS: PANTOPRAZOLE 40 MG/PACK PACK NG SCH (09:10)
[2023-06-25] MEDS: IV NS 0.9% 250 ML IV PRN (09:12)
[2023-06-25] MEDS: MEROPENEM 1 G in IV NS 0.9% 100 ML IV SCH ×2 (09:29→21:00)
[2023-06-25] MEDS ORDERED: KETAMINE HCL (500MG/10ML) 50 MG/ML VIAL IV ONE (10:30)
[2023-06-25 11:00] LABS: BASOPHILS % (MANUAL) 0 % (0.0-2.0); EOSINOPHILS % (MANUAL) 0 % (0-4); LYMPHOCYTES % (MANUAL) 5 % (16-48); MONOCYTES % (MANUAL) 4 % (0-11.0); NEUTROPHILS % (MANUAL) 91 (42-76); PLATELET ESTIMATE DECREASED
[2023-06-25 11:01] LABS: ANISOCYTOSIS 1+
[2023-06-25 13:09] LABS: ABG OXYGEN SATURATION 96.8 % (92.0-98.5); ABG PCO2 38.7 mmHg (35.0-45.0); ABG PH 7.431 (7.350-7.450); ABG PO2 94.7 mmHg (75.0-100.0); ABG TOTAL HEMOGLOBIN 12.5 G/dL (13.5-18.0); AaDO2 290.5 mmHg; COHb 0.4 % (0.5-1.5); MetHb 0.2 % (0.0-1.5); O2Hb 96.2 % (94.0-97.0); PEEP,BG 5 cm H2O; SITE, ABG Right Radial; VT, ABG 425 mL
[2023-06-25] MEDS: MIDAZOLAM HCL 100 MG in IV NS 0.9% 80 ML IV PRN (13:11)
[2023-06-25] MEDS: FENTANYL CITRAT IV 2,500 MCG in IV NS 0.9% 200 ML IV PRN (13:12)
[2023-06-25] MEDS: GLUCERNA 1.2 1,000 ML BOTTLE NG PRN (17:00)
[2023-06-26] VITALS (38 sets, daily range): BP systolic 86–136; BP diastolic 46–92; TEMP 97.7–98.5; O2SAT 93–99
[2023-06-26] MEDS: BLOOD SUGAR DIAGNOSTIC 1 EACH STRIP IN SCH ×4 (00:22→17:33)
[2023-06-26] MEDS: INSULIN REGULAR, HUMAN 100 UNIT/ML 3 ML VIAL SQ PRN ×3 (06:18→17:40)
[2023-06-26] MEDS: PANTOPRAZOLE 40 MG/PACK PACK NG SCH (08:36)
[2023-06-26] MEDS: MEROPENEM 1 G in IV NS 0.9% 100 ML IV SCH ×2 (08:36→21:00)
[2023-06-26 09:43] LABS: BASOPHILS % (AUTO) 0.1 % (0.0-2.0); EOSINOPHILS % (AUTO) 0.1 % (0.0-6.0); HEMATOCRIT 39 % (39-51); HEMOGLOBIN 12.2 g/dL (13.5-17.5); LYMPHOCYTES # (AUTO) 0.7 K/uL (0.8-4.8); LYMPHOCYTES % (AUTO) 5.8 % (20.0-44.0); MEAN CORPUSCULAR HEMOGLOBIN 26 PG (26.0-33.0); MEAN CORPUSCULAR HGB CONC 31 g/dl (31.0-36.0); MEAN CORPUSCULAR VOLUME 84 fL (80-96); MONOCYTES # (AUTO) 0.8 K/uL (0.1-1.30); MONOCYTES % (AUTO) 6.5 % (2.0-12.0); NEUTROPHILS % (AUTO) 87.5 % (43.0-81.0); PLATELET COUNT (AUTO) 112 K/uL (150-450); RED BLOOD CELL COUNT(AUTO) 4.67 MIL/uL (4.5-6.0); RED CELL DISTRIBUTION WIDTH 16.2 % (11.5-15.0); WHITE BLOOD COUNT (AUTO) 12.5 K/uL (4.3-11.0)
[2023-06-26 10:00] LABS: BILIRUBIN,TOTAL 0.7 mg/dL (0.2-1.0); CALCIUM, SERUM 8.6 mg/dL (8.5-10.1); CREATININE 1.1 mg/dL (0.6-1.3); MAGNESIUM 2.4 mg/dL (1.8-2.4); PHOSPHORUS 3.7 mg/dL (2.5-4.9); POTASSIUM 4.6 mmol/L (3.5-5.1); TOTAL PROTEIN, SERUM 6.6 g/dL (6.4-8.2)
[2023-06-26] MEDS ORDERED: IV D5/0.45 NACL 1,000 ML IV ONE (19:00)
[2023-06-26] MEDS: IV D5/0.45 NACL 1,000 ML IV PRN (19:31)
[2023-06-27] VITALS (16 sets, daily range): BP systolic 107–138; BP diastolic 57–88; TEMP 97.7–99.5; O2SAT 91–98
[2023-06-27] MEDS: BLOOD SUGAR DIAGNOSTIC 1 EACH STRIP IN SCH ×4 (00:52→17:12)
[2023-06-27 05:49] LABS: ALANINE AMINOTRANSFERASE 29 U/L (12-78); ALBUMIN 1.7 g/dL (3.4-5.0); ALKALINE PHOSPHATASE 110 U/L (46-116); ASPARTATE AMINOTRANSFERASE 22 U/L (15-37); BILIRUBIN,TOTAL 1.1 mg/dL (0.2-1.0); CALCIUM, SERUM 8.2 mg/dL (8.5-10.1); CARBON DIOXIDE 26 mmol/L (21-32); CHLORIDE 107 mmol/L (98-107); CREATININE 0.8 mg/dL (0.6-1.3); GLUCOSE 163 mg/dL (74-106); POTASSIUM 3.9 mmol/L (3.5-5.1); SODIUM SERUM 140 mmol/L (136-145); TOTAL PROTEIN, SERUM 5.9 g/dL (6.4-8.2); UREA NITROGEN, BLOOD 35 mg/dL (7-18)
[2023-06-27] MEDS: MEROPENEM 1 G in IV NS 0.9% 100 ML IV SCH ×2 (08:24→20:38)
[2023-06-27] MEDS: IV D5/0.45 NACL 1,000 ML IV PRN (08:26)
[2023-06-27] MEDS: PANTOPRAZOLE 40 MG/PACK PACK NG SCH (08:29)
[2023-06-27 10:14] LABS: BASOPHILS % (AUTO) 0.1 % (0.0-2.0); EOSINOPHILS % (AUTO) 0.1 % (0.0-6.0); HEMATOCRIT 38 % (39-51); HEMOGLOBIN 12.3 g/dL (13.5-17.5); LYMPHOCYTES # (AUTO) 0.6 K/uL (0.8-4.8); LYMPHOCYTES % (AUTO) 5.3 % (20.0-44.0); MEAN CORPUSCULAR HEMOGLOBIN 27 PG (26.0-33.0); MEAN CORPUSCULAR HGB CONC 33 g/dl (31.0-36.0); MEAN CORPUSCULAR VOLUME 83 fL (80-96); MONOCYTES # (AUTO) 0.7 K/uL (0.1-1.30); NEUTROPHILS # (AUTO) 9.2 K/uL (1.8-8.9); NEUTROPHILS % (AUTO) 87.5 % (43.0-81.0); PLATELET COUNT (AUTO) 74 K/uL (150-450); RED BLOOD CELL COUNT(AUTO) 4.56 MIL/uL (4.5-6.0); RED CELL DISTRIBUTION WIDTH 15.6 % (11.5-15.0); WHITE BLOOD COUNT (AUTO) 10.5 K/uL (4.3-11.0)
[2023-06-27 10:27] LABS: ANISOCYTOSIS 1+; BAND % (MANUAL) 5 % (0.0-5.0); BASOPHILS % (MANUAL) 0 % (0.0-2.0); EOSINOPHILS % (MANUAL) 0 % (0-4); LYMPHOCYTES % (MANUAL) 6 % (16-48); MONOCYTES % (MANUAL) 7 % (0-11.0); NEUTROPHILS % (MANUAL) 82 (42-76); PLATELET ESTIMATE PLATELET CLUMPS SEEN
[2023-06-27] MEDS: INSULIN REGULAR, HUMAN 100 UNIT/ML 3 ML VIAL SQ PRN ×2 (11:34→17:17)
[2023-06-28] VITALS: BP 130/82; TEMP 99.7; O2SAT 98
[2023-06-28] MEDS: BLOOD SUGAR DIAGNOSTIC 1 EACH STRIP IN SCH ×5 (00:09→23:39)
[2023-06-28] MEDS: INSULIN REGULAR, HUMAN 100 UNIT/ML 3 ML VIAL SQ PRN ×5 (00:10→23:43)
[2023-06-28 04:00] VITALS: BP 130/82; TEMP 99.7; O2SAT 98
[2023-06-28 05:47] LABS: BASOPHILS % (AUTO) 0.1 % (0.0-2.0); EOSINOPHILS % (AUTO) 0.1 % (0.0-6.0); HEMATOCRIT 43 % (39-51); HEMOGLOBIN 13.7 g/dL (13.5-17.5); LYMPHOCYTES # (AUTO) 0.3 K/uL (0.8-4.8); LYMPHOCYTES % (AUTO) 3.9 % (20.0-44.0); MEAN CORPUSCULAR HEMOGLOBIN 26 PG (26.0-33.0); MEAN CORPUSCULAR HGB CONC 32 g/dl (31.0-36.0); MEAN CORPUSCULAR VOLUME 83 fL (80-96); MONOCYTES # (AUTO) 0.5 K/uL (0.1-1.30); MONOCYTES % (AUTO) 6.3 % (2.0-12.0); NEUTROPHILS # (AUTO) 7.6 K/uL (1.8-8.9); NEUTROPHILS % (AUTO) 89.6 % (43.0-81.0); PLATELET COUNT (AUTO) 64 K/uL (150-450); RED BLOOD CELL COUNT(AUTO) 5.23 MIL/uL (4.5-6.0); RED CELL DISTRIBUTION WIDTH 16.1 % (11.5-15.0); WHITE BLOOD COUNT (AUTO) 8.5 K/uL (4.3-11.0)
[2023-06-28 06:04] LABS: ALBUMIN 1.8 g/dL (3.4-5.0); BILIRUBIN,TOTAL 1.4 mg/dL (0.2-1.0); CALCIUM, SERUM 8.1 mg/dL (8.5-10.1); CREATININE 0.8 mg/dL (0.6-1.3); MAGNESIUM 2.1 mg/dL (1.8-2.4); PHOSPHORUS 2.6 mg/dL (2.5-4.9); POTASSIUM 3.5 mmol/L (3.5-5.1); TOTAL PROTEIN, SERUM 6.4 g/dL (6.4-8.2)
[2023-06-28 06:18] LABS: LYMPHOCYTES % (MANUAL) 3 % (16-48); MONOCYTES % (MANUAL) 5 % (0-11.0); NEUTROPHILS % (MANUAL) 92 (42-76); PLATELET ESTIMATE DECREASED
[2023-06-28 08:00] VITALS: BP 127/79; TEMP 98.4; O2SAT 98
[2023-06-28] MEDS: PANTOPRAZOLE 40 MG/PACK PACK NG SCH ×2 (09:00→10:00)
[2023-06-28] MEDS: MEROPENEM 1 G in IV NS 0.9% 100 ML IV SCH (10:00)
[2023-06-28 12:00] VITALS: BP 127/79; TEMP 98.4; O2SAT 98
[2023-06-28] MEDS: IV D5/0.45 NACL 1,000 ML IV PRN (12:21)
[2023-06-28] MEDS: PANTOPRAZOLE 40 MG VIAL IV SCH (15:21)
[2023-06-28 16:00] VITALS: BP 124/84; TEMP 89; O2SAT 98
[2023-06-28 20:38] VITALS: BP 124/79; TEMP 99.1; O2SAT 98
[2023-06-29] VITALS (7 sets, daily range): BP systolic 106–136; BP diastolic 76–88; TEMP 98.7–99.9; O2SAT 95–100
[2023-06-29] MEDS: IV D5/0.45 NACL 1,000 ML IV PRN (00:24)
[2023-06-29] MEDS: BLOOD SUGAR DIAGNOSTIC 1 EACH STRIP IN SCH ×4 (05:10→23:50)
[2023-06-29] MEDS: INSULIN REGULAR, HUMAN 100 UNIT/ML 3 ML VIAL SQ PRN ×4 (05:11→23:48)
[2023-06-29 08:11] LABS: BASOPHILS % (AUTO) 0.1 % (0.0-2.0); EOSINOPHILS % (AUTO) 0.3 % (0.0-6.0); HEMATOCRIT 38 % (39-51); HEMOGLOBIN 12.1 g/dL (13.5-17.5); LYMPHOCYTES # (AUTO) 0.5 K/uL (0.8-4.8); LYMPHOCYTES % (AUTO) 6.6 % (20.0-44.0); MEAN CORPUSCULAR HEMOGLOBIN 27 PG (26.0-33.0); MEAN CORPUSCULAR HGB CONC 32 g/dl (31.0-36.0); MEAN CORPUSCULAR VOLUME 83 fL (80-96); MONOCYTES # (AUTO) 0.6 K/uL (0.1-1.30); MONOCYTES % (AUTO) 7.4 % (2.0-12.0); NEUTROPHILS # (AUTO) 6.4 K/uL (1.8-8.9); NEUTROPHILS % (AUTO) 85.6 % (43.0-81.0); PLATELET COUNT (AUTO) 130 K/uL (150-450); RED BLOOD CELL COUNT(AUTO) 4.52 MIL/uL (4.5-6.0); WHITE BLOOD COUNT (AUTO) 7.5 K/uL (4.3-11.0)
[2023-06-29 08:27] LABS: CALCIUM, SERUM 7.7 mg/dL (8.5-10.1); CARBON DIOXIDE 31 mmol/L (21-32); CHLORIDE 103 mmol/L (98-107); CREATININE 0.9 mg/dL (0.6-1.3); GLUCOSE 134 mg/dL (74-106); MAGNESIUM 1.9 mg/dL (1.8-2.4); PHOSPHORUS 2.8 mg/dL (2.5-4.9); POTASSIUM 2.9 mmol/L (3.5-5.1); SODIUM SERUM 138 mmol/L (136-145); UREA NITROGEN, BLOOD 20 mg/dL (7-18)
[2023-06-29] MEDS: POTASSIUM CL. PREMIX PERIPHER. 50 ML IV SCH ×6 (10:13→15:30)
[2023-06-29] MEDS ORDERED: GLUCERNA 1.2 1,000 ML BOTTLE NG PRN (12:14)
[2023-06-29] MEDS: PANTOPRAZOLE 40 MG VIAL IV SCH (15:26)
[2023-06-30] VITALS: BP 132/88; TEMP 99.7; O2SAT 97
[2023-06-30] MEDS: IV D5/0.45 NACL 1,000 ML IV PRN ×2 (03:21→22:43)
[2023-06-30 04:00] VITALS: BP 133/79; TEMP 99.3; O2SAT 97
[2023-06-30] MEDS: BLOOD SUGAR DIAGNOSTIC 1 EACH STRIP IN SCH ×3 (06:00→17:23)
[2023-06-30] MEDS: INSULIN REGULAR, HUMAN 100 UNIT/ML 3 ML VIAL SQ PRN ×2 (06:15→17:18)
[2023-06-30 08:00] VITALS: BP 135/83; TEMP 97.6; O2SAT 97
[2023-06-30 08:08] LABS: BASOPHILS % (AUTO) 0.1 % (0.0-2.0); EOSINOPHILS % (AUTO) 0.3 % (0.0-6.0); HEMATOCRIT 40 % (39-51); HEMOGLOBIN 12.6 g/dL (13.5-17.5); LYMPHOCYTES # (AUTO) 0.8 K/uL (0.8-4.8); LYMPHOCYTES % (AUTO) 8.2 % (20.0-44.0); MEAN CORPUSCULAR HEMOGLOBIN 26 PG (26.0-33.0); MEAN CORPUSCULAR HGB CONC 31 g/dl (31.0-36.0); MEAN CORPUSCULAR VOLUME 83 fL (80-96); MONOCYTES # (AUTO) 0.9 K/uL (0.1-1.30); NEUTROPHILS # (AUTO) 7.5 K/uL (1.8-8.9); NEUTROPHILS % (AUTO) 81.4 % (43.0-81.0); PLATELET COUNT (AUTO) 110 K/uL (150-450); RED BLOOD CELL COUNT(AUTO) 4.83 MIL/uL (4.5-6.0); RED CELL DISTRIBUTION WIDTH 16.5 % (11.5-15.0); WHITE BLOOD COUNT (AUTO) 9.2 K/uL (4.3-11.0)
[2023-06-30 08:24] LABS: ALBUMIN 1.8 g/dL (3.4-5.0); CALCIUM, SERUM 7.9 mg/dL (8.5-10.1); CREATININE 0.8 mg/dL (0.6-1.3); MAGNESIUM 1.9 mg/dL (1.8-2.4); PHOSPHORUS 2.5 mg/dL (2.5-4.9); POTASSIUM 3.3 mmol/L (3.5-5.1); TOTAL PROTEIN, SERUM 6.6 g/dL (6.4-8.2)
[2023-06-30] MEDS ORDERED: POTASSIUM CHLORIDE 20 MEQ POWDER PACKET GT SCH (10:00)
[2023-06-30] MEDS: PANTOPRAZOLE 40 MG/PACK PACK GT SCH (10:40)
[2023-06-30 12:00] VITALS: BP 131/82; TEMP 97.8; O2SAT 97
[2023-06-30 16:00] VITALS: BP 118/94; TEMP 97.7; O2SAT 96
[2023-06-30 20:00] VITALS: BP 134/98; TEMP 99.5; O2SAT 98
[2023-07-01] VITALS: BP 128/86; TEMP 100.2; O2SAT 96
[2023-07-01] MEDS ORDERED: ACETAMINOPHEN 325 MG TABLET PO PRN (01:30)
[2023-07-01] MEDS: INSULIN REGULAR, HUMAN 100 UNIT/ML 3 ML VIAL SQ PRN ×5 (01:52→23:40)
[2023-07-01 04:00] VITALS: BP 107/69; TEMP 98.1; O2SAT 99
[2023-07-01] MEDS: BLOOD SUGAR DIAGNOSTIC 1 EACH STRIP IN SCH ×5 (05:56→23:38)
[2023-07-01 06:57] LABS: BASOPHILS % (AUTO) 0.3 % (0.0-2.0); EOSINOPHILS # (AUTO) 0.1 K/uL (0.0-0.7); EOSINOPHILS % (AUTO) 0.8 % (0.0-6.0); HEMATOCRIT 37 % (39-51); HEMOGLOBIN 11.7 g/dL (13.5-17.5); LYMPHOCYTES # (AUTO) 0.9 K/uL (0.8-4.8); LYMPHOCYTES % (AUTO) 11.7 % (20.0-44.0); MEAN CORPUSCULAR HEMOGLOBIN 26 PG (26.0-33.0); MEAN CORPUSCULAR HGB CONC 32 g/dl (31.0-36.0); MEAN CORPUSCULAR VOLUME 83 fL (80-96); MONOCYTES # (AUTO) 0.7 K/uL (0.1-1.30); MONOCYTES % (AUTO) 8.4 % (2.0-12.0); NEUTROPHILS # (AUTO) 6.1 K/uL (1.8-8.9); NEUTROPHILS % (AUTO) 78.8 % (43.0-81.0); PLATELET COUNT (AUTO) 99 K/uL (150-450); RED BLOOD CELL COUNT(AUTO) 4.47 MIL/uL (4.5-6.0); RED CELL DISTRIBUTION WIDTH 15.9 % (11.5-15.0); WHITE BLOOD COUNT (AUTO) 7.7 K/uL (4.3-11.0)
[2023-07-01 07:23] LABS: ALBUMIN 1.6 g/dL (3.4-5.0); BILIRUBIN,TOTAL 1.3 mg/dL (0.2-1.0); CALCIUM, SERUM 7.6 mg/dL (8.5-10.1); CREATININE 0.8 mg/dL (0.6-1.3); MAGNESIUM 1.8 mg/dL (1.8-2.4); PHOSPHORUS 2.8 mg/dL (2.5-4.9); POTASSIUM 3.1 mmol/L (3.5-5.1)
[2023-07-01 08:00] VITALS: BP 119/73; TEMP 98.1; O2SAT 96
[2023-07-01] MEDS: PANTOPRAZOLE 40 MG/PACK PACK GT SCH (08:34)
[2023-07-01] MEDS: GLUCERNA 1.2 1,000 ML BOTTLE NG PRN (08:40)
[2023-07-01] MEDS ORDERED: POTASSIUM CHLORIDE 20 MEQ POWDER PACKET GT SCH (09:00)
[2023-07-01 12:00] VITALS: BP 130/81; TEMP 97.9; O2SAT 97
[2023-07-01 16:00] VITALS: BP 137/83; TEMP 97.9; O2SAT 98
[2023-07-01 20:00] VITALS: BP 128/80; TEMP 99.9; O2SAT 97
[2023-07-02] VITALS (7 sets, daily range): BP systolic 125–135; BP diastolic 79–95; TEMP 97.6–98.8; O2SAT 94–99
[2023-07-02] MEDS: GLUCERNA 1.2 1,000 ML BOTTLE NG PRN (05:33)
[2023-07-02] MEDS: BLOOD SUGAR DIAGNOSTIC 1 EACH STRIP IN SCH ×3 (05:47→17:49)
[2023-07-02] MEDS: INSULIN REGULAR, HUMAN 100 UNIT/ML 3 ML VIAL SQ PRN ×2 (05:48→11:40)
[2023-07-02] MEDS: PANTOPRAZOLE 40 MG/PACK PACK GT SCH (08:17)
[2023-07-03] MEDS: BLOOD SUGAR DIAGNOSTIC 1 EACH STRIP IN SCH ×5 (00:53→23:31)
[2023-07-03] MEDS: INSULIN REGULAR, HUMAN 100 UNIT/ML 3 ML VIAL SQ PRN ×4 (00:59→23:32)
[2023-07-03] MEDS: GLUCERNA 1.2 1,000 ML BOTTLE NG PRN (05:52)
[2023-07-03 07:37] LABS: ALBUMIN 1.7 g/dL (3.4-5.0); BILIRUBIN,TOTAL 1.3 mg/dL (0.2-1.0); CALCIUM, SERUM 7.8 mg/dL (8.5-10.1); CREATININE 0.7 mg/dL (0.6-1.3); MAGNESIUM 2.1 mg/dL (1.8-2.4); PHOSPHORUS 3.5 mg/dL (2.5-4.9); POTASSIUM 3.5 mmol/L (3.5-5.1); TOTAL PROTEIN, SERUM 6.9 g/dL (6.4-8.2)
[2023-07-03 08:06] LABS: BASOPHILS % (AUTO) 0.3 % (0.0-2.0); EOSINOPHILS % (AUTO) 0.6 % (0.0-6.0); HEMATOCRIT 37 % (39-51); HEMOGLOBIN 11.9 g/dL (13.5-17.5); LYMPHOCYTES # (AUTO) 0.8 K/uL (0.8-4.8); MEAN CORPUSCULAR HEMOGLOBIN 26 PG (26.0-33.0); MEAN CORPUSCULAR HGB CONC 32 g/dl (31.0-36.0); MEAN CORPUSCULAR VOLUME 82 fL (80-96); MONOCYTES # (AUTO) 0.4 K/uL (0.1-1.30); MONOCYTES % (AUTO) 7.4 % (2.0-12.0); NEUTROPHILS # (AUTO) 4.3 K/uL (1.8-8.9); NEUTROPHILS % (AUTO) 77.7 % (43.0-81.0); PLATELET COUNT (AUTO) 104 K/uL (150-450); RED BLOOD CELL COUNT(AUTO) 4.51 MIL/uL (4.5-6.0); RED CELL DISTRIBUTION WIDTH 16.1 % (11.5-15.0); WHITE BLOOD COUNT (AUTO) 5.6 K/uL (4.3-11.0)
[2023-07-03] MEDS: PANTOPRAZOLE 40 MG/PACK PACK GT SCH (09:47)
[2023-07-03 10:47] VITALS: BP 117/74; TEMP 98.8; O2SAT 96
[2023-07-03] MEDS ORDERED: GLUCERNA 1.2 1,000 ML BOTTLE NG PRN (14:00)
[2023-07-03] MEDS ORDERED: ETOMIDATE 2 MG/ML VIAL ONE (18:38)
[2023-07-03 20:00] VITALS: BP 129/79; TEMP 98.7; O2SAT 96
[2023-07-03 20:35] LABS: INR 1.13 (0.91-1.10); PROTHROMBIN TIME 11.9 SECS (9.2-11.1)
[2023-07-04 05:46] LABS: BASOPHILS % (AUTO) 0.3 % (0.0-2.0); EOSINOPHILS % (AUTO) 0.3 % (0.0-6.0); HEMATOCRIT 33 % (39-51); HEMOGLOBIN 10.7 g/dL (13.5-17.5); LYMPHOCYTES # (AUTO) 0.6 K/uL (0.8-4.8); LYMPHOCYTES % (AUTO) 13.9 % (20.0-44.0); MEAN CORPUSCULAR HEMOGLOBIN 26 PG (26.0-33.0); MEAN CORPUSCULAR HGB CONC 32 g/dl (31.0-36.0); MEAN CORPUSCULAR VOLUME 81 fL (80-96); MONOCYTES # (AUTO) 0.4 K/uL (0.1-1.30); NEUTROPHILS # (AUTO) 3.2 K/uL (1.8-8.9); NEUTROPHILS % (AUTO) 76.5 % (43.0-81.0); PLATELET COUNT (AUTO) 90 K/uL (150-450); RED CELL DISTRIBUTION WIDTH 15.9 % (11.5-15.0); WHITE BLOOD COUNT (AUTO) 4.1 K/uL (4.3-11.0)
[2023-07-04] MEDS: BLOOD SUGAR DIAGNOSTIC 1 EACH STRIP IN SCH ×2 (05:46→12:15)
[2023-07-04] MEDS: INSULIN REGULAR, HUMAN 100 UNIT/ML 3 ML VIAL SQ PRN ×2 (05:46→12:16)
[2023-07-04 06:19] LABS: CALCIUM, SERUM 7.6 mg/dL (8.5-10.1); CREATININE 0.7 mg/dL (0.6-1.3); MAGNESIUM 1.7 mg/dL (1.8-2.4); PHOSPHORUS 3.3 mg/dL (2.5-4.9); POTASSIUM 3.6 mmol/L (3.5-5.1)
[2023-07-04 06:57] LABS: ALBUMIN 1.7 g/dL (3.4-5.0); BILIRUBIN,TOTAL 1.2 mg/dL (0.2-1.0); TOTAL PROTEIN, SERUM 6.4 g/dL (6.4-8.2)
[2023-07-04 07:30] VITALS: BP 104/63; TEMP 98.8; O2SAT 98
[2023-07-04] MEDS: PANTOPRAZOLE 40 MG/PACK PACK GT SCH (09:21)
[2023-07-04] MEDS ORDERED: ASPIRIN 81 MG TAB.CHEW PO SCH (09:30)
[2023-07-04] MEDS ORDERED: METOPROLOL TARTRATE 50 MG TABLET PO SCH (12:00)
[2023-07-04 12:14] VITALS: BP 106/64
[2023-07-04] MEDS: Magnesium 1GM/D5W 100ML PREMIX 100 ML IV SCH ×2 (12:14→13:35)
== END 2023-07-04 17:00 | DRG 870 ==
LOC: ER 02:50 → TRANSITION 06:37 → ICU 09:45 → TELE1 06-27 14:27 → MEDSG1 07-02 11:12 → MED 07-02 15:10
PROVIDERS: ADMIT Internal Medicine
PROC: 5A1955Z Respiratory Ventilation, Greater than 96 Consecutive Hours (ICD-10-PCS; principal; 2023-06-14)
PROC: 0BH17EZ Insertion of Endotracheal Airway into Trachea, Via Natural or Artificial Opening (ICD-10-PCS; 2023-06-14)
PROC: 02HV33Z Insertion of Infusion Device into Superior Vena Cava, Percutaneous Approach (ICD-10-PCS; 2023-06-14)
PROC: B548ZZA Ultrasonography of Superior Vena Cava, Guidance (ICD-10-PCS; 2023-06-14)
PROC: 5A12012 Performance of Cardiac Output, Single, Manual (ICD-10-PCS; 2023-06-14)
PROC: 0DH63UZ Insertion of Feeding Device into Stomach, Percutaneous Approach (ICD-10-PCS; 2023-07-03)
DX: A40.0 Sepsis due to streptococcus, group A (principal); I21.A1 Myocardial infarction type 2; J96.01 Acute respiratory failure with hypoxia; K72.00 Acute and subacute hepatic failure without coma; R65.21 Severe sepsis with septic shock; G93.41 Metabolic encephalopathy; N17.0 Acute kidney failure with tubular necrosis; J18.9 Pneumonia, unspecified organism; J05.10 Acute epiglottitis without obstruction; E87.20 Acidosis, unspecified; I42.9 Cardiomyopathy, unspecified; I47.20 Ventricular tachycardia, unspecified; I13.0 Hypertensive heart and chronic kidney disease with heart failure and stage 1 through stage 4 chronic kidney disease, or unspecified chronic kidney disease; E87.1 Hypo-osmolality and hyponatremia; G72.1 Alcoholic myopathy; E87.0 Hyperosmolality and hypernatremia; E83.41 Hypermagnesemia; E86.0 Dehydration; D64.9 Anemia, unspecified; I48.91 Unspecified atrial fibrillation; K29.70 Gastritis, unspecified, without bleeding; K82.8 Other specified diseases of gallbladder; R13.10 Dysphagia, unspecified; N18.9 Chronic kidney disease, unspecified; F31.9 Bipolar disorder, unspecified; Z87.442 Personal history of urinary calculi; Z95.0 Presence of cardiac pacemaker; R74.01 Elevation of levels of liver transaminase levels; E11.22 Type 2 diabetes mellitus with diabetic chronic kidney disease; I50.9 Heart failure, unspecified; D69.6 Thrombocytopenia, unspecified; L89.816 Pressure-induced deep tissue damage of head; Z20.822 Contact with and (suspected) exposure to COVID-19; Z86.19 Personal history of other infectious and parasitic diseases; K76.0 Fatty (change of) liver, not elsewhere classified; E87.6 Hypokalemia
CPT/HCPCS: 31720; 36415; 36600; 43246; 70490-TC; 71045-TC; 74230-TC; 76700-TC; 80048-TC; 80053-TC; 80061-TC; 80076-TC; 80202-TC; 81001; 82550-TC; 82553; 82570-TC; 82803-TC; 82962-TC; 83605-TC; 83735-TC; 83880; 83935-TC; 83970; 84100-TC; 84155; 84165; 84300-TC; 84443-TC; 84478-TC; 84484-TC; 84550-TC; 85025-TC; 85378-TC; 85610-TC; 86850-TC; 87040-TC; 87086-TC; 87186-TC; 92526; 92611-TC; 92950-TC; 93307-TC; 94002-TC; 94003-TC; 94799-TC; 97110-TC; 97112-TC; 97116-TC; 97530-TC; A4223; C9113; C9803; G0378; G0480; J0171; J0282; J0692; J1100; J1644; J1650; J1815; J2185; J2250; J2930; J3010; J3370; J3475; J3480; J3490; J7030; J7042; J7050; J7060; J7070; Q9967

== ENCOUNTER 2024-12-27 19:12 | Emergency (ER) | payer MEDICARE, OTHER ==
[~2024-12-27] VITALS: Ht 180.3 cm; Wt 80.7 kg
[~2024-12-27 19:12] MED LIST: BENA40TA67 PO
[2024-12-27] MEDS: IV NS 0.9% 500 ML BAG IV ONE (19:51)
[2024-12-27 20:12] LABS: CARBON DIOXIDE 17 mmol/L (21-32); CHLORIDE 102 mmol/L (98-107); CREATININE 1.6 mg/dL (0.6-1.3); GLUCOSE 98 mg/dL (74-106); POTASSIUM 4.7 mmol/L (3.5-5.1); SODIUM SERUM 135 mmol/L (136-145); UREA NITROGEN, BLOOD 33 mg/dL (7-18)
[2024-12-27 20:13] LABS: BASOPHILS % (AUTO) 0.6 % (0.0-2.0); EOSINOPHILS # (AUTO) 0.2 K/uL (0.0-0.7); EOSINOPHILS % (AUTO) 4.3 % (0.0-6.0); HEMATOCRIT 39 % (39-51); HEMOGLOBIN 12.5 g/dL (13.5-17.5); LYMPHOCYTES # (AUTO) 1.8 K/uL (0.8-4.8); LYMPHOCYTES % (AUTO) 39.2 % (20.0-44.0); MEAN CORPUSCULAR HEMOGLOBIN 29 PG (26.0-33.0); MEAN CORPUSCULAR HGB CONC 32 g/dl (31.0-36.0); MEAN CORPUSCULAR VOLUME 90 fL (80-96); MONOCYTES # (AUTO) 0.4 K/uL (0.1-1.30); MONOCYTES % (AUTO) 9.2 % (2.0-12.0); NEUTROPHILS # (AUTO) 2.2 K/uL (1.8-8.9); NEUTROPHILS % (AUTO) 46.7 % (43.0-81.0); PLATELET COUNT (AUTO) 128 K/uL (150-450); RED BLOOD CELL COUNT(AUTO) 4.38 MIL/uL (4.5-6.0); RED CELL DISTRIBUTION WIDTH 16.2 % (11.5-15.0); WHITE BLOOD COUNT (AUTO) 4.6 K/uL (4.3-11.0)
[2024-12-27 20:18] LABS: ALANINE AMINOTRANSFERASE 16 U/L (12-78); ALBUMIN 3.5 g/dL (3.4-5.0); ALCOHOL, BLOOD 178 mg/dL (0-10); ALKALINE PHOSPHATASE 91 U/L (46-116); ASPARTATE AMINOTRANSFERASE 33 U/L (15-37); BILIRUBIN,TOTAL 0.6 mg/dL (0.2-1.0); CALCIUM, SERUM 11.2 mg/dL (8.5-10.1); TOTAL PROTEIN, SERUM 7.9 g/dL (6.4-8.2)
[2024-12-27 20:19] LABS: BILIRUBIN,DIRECT 0.1 mg/dL (0.0-0.2)
[2024-12-28 01:26] VITALS: BP 116/70; TEMP 98.1; O2SAT 97
== END 2024-12-28 01:31 | disposition home or self-care (01) ==
LOC: ER 19:15
DX: F10.129 Alcohol abuse with intoxication, unspecified (principal); S40.811A Abrasion of right upper arm, initial encounter; I10 Essential (primary) hypertension; E11.9 Type 2 diabetes mellitus without complications; E78.00 Pure hypercholesterolemia, unspecified; Z79.899 Other long term (current) drug therapy; Z86.19 Personal history of other infectious and parasitic diseases; W18.39XA Other fall on same level, initial encounter; Y93.01 Activity, walking, marching and hiking; Y92.89 Other specified places as the place of occurrence of the external cause; Y99.8 Other external cause status
CPT/HCPCS: 99284; 96360; 93005; 85025; 80048; 80076; 36415; 80320; J7040; G0480

== ENCOUNTER 2025-05-26 10:08 | Inpatient (IN) | payer MEDICARE, OTHER ==
[~2025-05-26] VITALS: Ht 175.3 cm; Wt 65.3 kg
[2025-05-26] MEDS ORDERED: ONDANSETRON HCL/PF 4 MG/2 ML VIAL ONE (10:30)
[2025-05-26] MEDS ORDERED: FAMOTIDINE/PF INJ 20 MG/2 ML VIAL IV ONE (10:31)
[2025-05-26] MEDS: IV NS 0.9% 1,000 ML BAG IV ONE (10:50)
[2025-05-26 10:51] LABS: PLATELET COUNT (AUTO) 56 K/uL (150-450); RED BLOOD CELL COUNT(AUTO) 3.09 MIL/uL (4.5-6.0); RED CELL DISTRIBUTION WIDTH 16.3 % (11.5-15.0); WHITE BLOOD COUNT (AUTO) 4.4 K/uL (4.3-11.0)
[2025-05-26] MEDS: FAMOTIDINE/PF INJ 20 MG/2 ML VIAL IV ONE (10:57)
[2025-05-26] MEDS: ONDANSETRON HCL/PF 4 MG/2 ML VIAL IVP ONE (10:58)
[2025-05-26 10:59] LABS: CALCIUM, SERUM 11.3 mg/dL (8.5-10.1); CREATININE 2.0 mg/dL (0.6-1.3); SODIUM SERUM 133 mmol/L (136-145); UREA NITROGEN, BLOOD 55 mg/dL (7-18)
[2025-05-26 11:04] LABS: ASPARTATE AMINOTRANSFERASE 53 U/L (15-37); TOTAL PROTEIN, SERUM 7.1 g/dL (6.4-8.2)
[2025-05-26 11:30] LABS: ALCOHOL, BLOOD < 3 mg/dL (0-10)
[2025-05-26 11:31] LABS: APPEARANCE,URINE CLEAR (CLEAR); BLOOD, URINE NEGATIVE Ery/uL (NEGATIVE); LEUKOCYTE ESTERASE ,URINE NEGATIVE (NEGATIVE); NITRITE, URINE NEGATIVE (NEGATIVE); UGLUCOSE NEGATIVE (NEGATIVE)
[2025-05-26 11:32] LABS: ADD URINE CULTURE NO; SQUAMOUS EPITHELIAL CELL,UR None Seen /HPF (None Seen)
[2025-05-26] MEDS ORDERED: Magnesium 1GM/D5W 100ML PREMIX 100 ML IV ONE (11:40)
[2025-05-26] MEDS: Magnesium 1 GM/2 ML VIAL IV ONE (11:48)
[2025-05-26] MEDS ORDERED: MELA10CA PO (12:24)
[2025-05-26] MEDS ORDERED: CRAN425C6 PO (12:24)
[2025-05-26] MEDS ORDERED: ASPI-1169 PO (12:24)
[2025-05-26] MEDS ORDERED: PANT40TA49 PO (12:24)
[2025-05-26] MEDS ORDERED: MIRT7.5T10 PO (12:24)
[2025-05-26] MEDS ORDERED: LOPE2CAP40 PO (12:24)
[2025-05-26] MEDS ORDERED: FLUT16SP BNOSTRILS (12:24)
[2025-05-26] MEDS ORDERED: IBUP-1953 PO (12:24)
[2025-05-26] MEDS ORDERED: HYDR25TA4 PO (12:24)
[2025-05-26] MEDS ORDERED: MEGE20TA3 PO (12:24)
[2025-05-26] MEDS ORDERED: DULO30CA2 PO (12:24)
[2025-05-26] MEDS ORDERED: ACET325T53 PO (12:24)
[2025-05-26] MEDS ORDERED: TAMS-12 PO (12:24)
[2025-05-26] MEDS ORDERED: METF-440 PO (12:24)
[2025-05-26] MEDS ORDERED: MULT-213 PO (12:24)
[2025-05-26] MEDS ORDERED: DIPH25TA62 PO (12:24)
[2025-05-26 12:38] LABS: BAND % (MANUAL) 1 % (0.0-5.0); LYMPHOCYTES % (MANUAL) 14 % (16-48); MONOCYTES % (MANUAL) 10 % (0-11.0); NEUTROPHILS % (MANUAL) 75 (42-76); PLATELET ESTIMATE DECREASED
[2025-05-26] MEDS ORDERED: MAG HYDROX/AL HYDROX/SIMETH 30 ML UDC PO PRN (14:30)
[2025-05-26] MEDS ORDERED: ACETAMINOPHEN 325 MG TABLET PO PRN (14:30)
[2025-05-26] MEDS ORDERED: ONDANSETRON HCL/PF 4 MG/2 ML VIAL IVP PRN (14:30)
[2025-05-26 16:00] VITALS: BP 92/56; TEMP 98.4; O2SAT 98
[2025-05-26] MEDS: IV NS 0.9% 1,000 ML IV PRN (17:35)
[2025-05-26 20:00] VITALS: BP 91/51; TEMP 98; O2SAT 95
[2025-05-27 04:00] VITALS: BP 94/55; TEMP 97.9; O2SAT 95
[2025-05-27 08:00] VITALS: BP 100/54; TEMP 98.2; O2SAT 94
[2025-05-27 08:01] LABS: PLATELET COUNT (AUTO) 53 K/uL (150-450); RED BLOOD CELL COUNT(AUTO) 2.77 MIL/uL (4.5-6.0); RED CELL DISTRIBUTION WIDTH 16.5 % (11.5-15.0); WHITE BLOOD COUNT (AUTO) 3.7 K/uL (4.3-11.0)
[2025-05-27 08:06] LABS: CALCIUM, SERUM 10.2 mg/dL (8.5-10.1); CREATININE 1.6 mg/dL (0.6-1.3); PHOSPHORUS 2.9 mg/dL (2.5-4.9); SODIUM SERUM 143.0 mmol/L (136-145); UREA NITROGEN, BLOOD 46.0 mg/dL (7-18)
[2025-05-27] MEDS: Magnesium 1GM/D5W 100ML PREMIX 100 ML IV SCH (12:26)
[2025-05-27 13:07] LABS: LYMPHOCYTES % (MANUAL) 12 % (16-48); MONOCYTES % (MANUAL) 1 % (0-11.0); NEUTROPHILS % (MANUAL) 87 (42-76)
[2025-05-27 13:08] LABS: PLATELET ESTIMATE DECREASED
[2025-05-27 13:24] LABS: PREGNANCY TEST SERUM QUAN 2.0 mIU/mL (0-6)
[2025-05-27 13:37] LABS: IRON, SERUM 27.0 ug/dl (50-175)
[2025-05-27 15:17] LABS: RHEUMATOID FACTOR SCREEN NEGATIVE (NEGATIVE)
[2025-05-27 16:00] VITALS: BP 102/67; TEMP 97.3; O2SAT 96
[2025-05-27 20:00] VITALS: BP 106/67; TEMP 98.2; O2SAT 94
[2025-05-27 23:47] LABS: HIV-1/2 ANTIBODY NON REACTIVE (NONREACTIVE)
[2025-05-28 04:00] VITALS: BP 103/66; TEMP 97.7; O2SAT 95
[2025-05-28 07:43] LABS: PLATELET COUNT (AUTO) 67 K/uL (150-450); RED BLOOD CELL COUNT(AUTO) 2.98 MIL/uL (4.5-6.0); RED CELL DISTRIBUTION WIDTH 16.3 % (11.5-15.0); WHITE BLOOD COUNT (AUTO) 5.3 K/uL (4.3-11.0)
[2025-05-28 08:00] VITALS: BP 106/71; TEMP 97.8; O2SAT 97
[2025-05-28 08:19] LABS: CALCIUM, SERUM 10.2 mg/dL (8.5-10.1); CREATININE 1.4 mg/dL (0.6-1.3); PHOSPHORUS 2.4 mg/dL (2.5-4.9); SODIUM SERUM 143.0 mmol/L (136-145); UREA NITROGEN, BLOOD 37.0 mg/dL (7-18)
[2025-05-28] MEDS: MAGNESIUM OXIDE 400 MG TABLET PO ONE (09:34)
[2025-05-28] MEDS: POTASSIUM CHLORIDE 20 MEQ TAB.PRT.SR PO SCH (09:34)
[2025-05-28] MEDS: BICALUTAMIDE 50 MG TABLET PO SCH (11:26)
[2025-05-28 11:33] LABS: LYMPHOCYTES % (MANUAL) 6 % (16-48); MONOCYTES % (MANUAL) 6 % (0-11.0); NEUTROPHILS % (MANUAL) 88 (42-76); PLATELET ESTIMATE DECREASED
[2025-05-28] MEDS: K PHOS NEUTRAL 250 MG TABLET PO ONE (15:33)
[2025-05-28 16:00] VITALS: BP 108/59; TEMP 98.6; O2SAT 96
[2025-05-28] MEDS: FOLIC ACID 1 MG TABLET PO SCH (16:38)
[2025-05-28] MEDS ORDERED: IV NS 0.9% 250 ML IV ONE (16:53)
[2025-05-28] MEDS ORDERED: CT SWABBABLE VALVE TRANS SET 1 EA INFUS.SET MC ONE (16:53)
[2025-05-28] MEDS ORDERED: IOHEXOL-300 100 ML VIAL IV ONE (16:53)
[2025-05-28 20:00] VITALS: BP 100/71; TEMP 98.7; O2SAT 95
[2025-05-28 21:26] LABS: FIBRINOGEN ACTIVITY 161.0 Mg/dL (213-485); INR 1.28 (0.91-1.10)
[2025-05-29 04:00] VITALS: BP 104/70; TEMP 98.2; O2SAT 96
[2025-05-29 06:22] LABS: PLATELET COUNT (AUTO) 70 K/uL (150-450); RED BLOOD CELL COUNT(AUTO) 2.97 MIL/uL (4.5-6.0); RED CELL DISTRIBUTION WIDTH 16.6 % (11.5-15.0); WHITE BLOOD COUNT (AUTO) 5.4 K/uL (4.3-11.0)
[2025-05-29 06:33] LABS: FIBRINOGEN ACTIVITY 186.0 Mg/dL (213-485); INR 1.31 (0.91-1.10)
[2025-05-29 06:38] LABS: CALCIUM, SERUM 9.9 mg/dL (8.5-10.1); CREATININE 2.4 mg/dL (0.6-1.3); SODIUM SERUM 142.0 mmol/L (136-145); UREA NITROGEN, BLOOD 42.0 mg/dL (7-18)
[2025-05-29 08:09] LABS: IMMUNOGLOBULIN A, SERUM 68 mg/dL (61-437); IMMUNOGLOBULIN M, SERUM 50 mg/dL (15-143)
[2025-05-29 08:16] VITALS: BP 107/67; TEMP 97.7; O2SAT 18
[2025-05-29 10:07] LABS: FREE KAPPA LT CHAINS SERUM 262.1 mg/L (3.3-19.4); FREE LAMBDA LT CHAIN SERUM 32.3 mg/L (5.7-26.3); KAPPA/LAMBDA RATIO SERUM 8.11 (0.26-1.65)
[2025-05-29] MEDS: Magnesium 1GM/D5W 100ML PREMIX 100 ML IV SCH (11:28)
[2025-05-29 11:48] LABS: BAND % (MANUAL) 2 % (0.0-5.0); BASOPHILS % (MANUAL) 0 % (0.0-2.0); EOSINOPHILS % (MANUAL) 0 % (0-4); LYMPHOCYTES % (MANUAL) 11 % (16-48); MONOCYTES % (MANUAL) 8 % (0-11.0); NEUTROPHILS % (MANUAL) 79 (42-76); PLATELET ESTIMATE DECREASED
[2025-05-29] MEDS ORDERED: FLUMAZENIL 0.5 MG VIAL IV PRN (13:00)
[2025-05-29] MEDS ORDERED: NALOXONE PREFILLED SYRINGE 2 MG/2 ML SYRINGE IV PRN (13:00)
[2025-05-29] MEDS ORDERED: MIDAZOLAM HCL 2 MG/2ML VIAL IV PRN (13:00)
[2025-05-29] MEDS ORDERED: FENTANYL PF 250MCG/5ML AMPUL IV PRN (13:00)
[2025-05-29 16:00] VITALS: BP 113/68; TEMP 97.5; O2SAT 99
[2025-05-29 20:00] VITALS: BP 103/61; TEMP 98.1; O2SAT 98
[2025-05-30 01:08] LABS: HEPATITIS B CORE AB, TOTAL Positive (Negative)
[2025-05-30 01:08] LABS: *TESTOSTERONE, SERUM 10 ng/dL (264-916)
[2025-05-30 04:00] VITALS: BP 108/68; TEMP 97.5; O2SAT 96
[2025-05-30 06:07] LABS: CALCIUM, SERUM 10.1 mg/dL (8.5-10.1); CREATININE 2.7 mg/dL (0.6-1.3); SODIUM SERUM 140.0 mmol/L (136-145); UREA NITROGEN, BLOOD 45.0 mg/dL (7-18)
[2025-05-30 07:08] LABS: FOLIC ACID > 20.0 ng/mL (>3.0)
[2025-05-30 08:00] VITALS: BP 109/69; TEMP 97.9; O2SAT 95
[2025-05-30 08:29] VITALS: BP 109/69; TEMP 97.9; O2SAT 95
[2025-05-30 12:10] LABS: *ANA ANTI-CENTROMERE B AB <0.2 AI (0.0-0.9); *ANA ANTI-DNA(DS) AB, QN <1 IU/mL (0-9); *ANA ANTI-JO-1 <0.2 AI (0.0-0.9); *ANA ANTICHROMATIN ANTIBODY <0.2 AI (0.0-0.9); *ANA RNP ANTIBODIES 0.2 AI (0.0-0.9); *ANA SJOGREN'S ANTI-SS-A <0.2 AI (0.0-0.9); *ANA SJOGREN'S ANTI-SS-B <0.2 AI (0.0-0.9); *ANAANTI-SCLERODERMA-70 AB <0.2 AI (0.0-0.9); *ANASMITH AB <0.2 AI (0.0-0.9)
[2025-05-30 16:00] VITALS: BP 114/71; TEMP 97.5; O2SAT 99
[2025-05-30 16:20] VITALS: BP 114/71; TEMP 97.5; O2SAT 99
[2025-05-30 20:00] VITALS: BP 106/67; TEMP 98.1; O2SAT 97
[2025-05-31 04:00] VITALS: BP 115/68; TEMP 98.1; O2SAT 98
[2025-05-31 05:13] LABS: AFP, TUMOR MARKER 2.9 ng/mL (0.0-6.4)
[2025-05-31 06:15] LABS: CALCIUM, SERUM 10.5 mg/dL (8.5-10.1); CREATININE 3.4 mg/dL (0.6-1.3); SODIUM SERUM 142.0 mmol/L (136-145); UREA NITROGEN, BLOOD 51.0 mg/dL (7-18)
[2025-05-31 06:19] LABS: FIBRINOGEN ACTIVITY 161 Mg/dL (213-485); INR 1.27 (0.91-1.10)
[2025-05-31 06:43] LABS: PLATELET COUNT (AUTO) 82 K/uL (150-450); RED BLOOD CELL COUNT(AUTO) 3.10 MIL/uL (4.5-6.0); RED CELL DISTRIBUTION WIDTH 18.0 % (11.5-15.0); WHITE BLOOD COUNT (AUTO) 6.0 K/uL (4.3-11.0)
[2025-05-31 08:00] VITALS: BP 124/76; TEMP 97.8; O2SAT 99
[2025-05-31] MEDS ORDERED: ANESTHESIA TRAY IN PYXIS 1 EA TRAY MC ONE (11:39)
[2025-05-31 11:48] LABS: EOSINOPHILS % (MANUAL) 2 % (0-4); LYMPHOCYTES % (MANUAL) 13 % (16-48); MONOCYTES % (MANUAL) 7 % (0-11.0); NEUTROPHILS % (MANUAL) 78 (42-76)
[2025-05-31 11:49] LABS: PLATELET ESTIMATE DECREASED
[2025-05-31] MEDS ORDERED: BUPIVACAINE 0.5 % PF 150 MG/30 ML VIAL ONE (13:36)
[2025-05-31] MEDS ORDERED: LIDOCAINE 1% INJ 50 ML MDV IJ ONE (13:50)
[2025-05-31] MEDS ORDERED: FENTANYL PF 100MCG/2ML AMPUL ONE (14:09)
[2025-05-31] MEDS ORDERED: BACITRACIN ZINC OINT (15 GM) 15 GM TUBE TP ONE (14:51)
[2025-05-31] MEDS ORDERED: ALBUTEROL FS 2.5 MG/3 ML VIAL.NEB ONE (15:58)
[2025-05-31 16:03] VITALS: O2SAT 100
[2025-05-31] MEDS: ALBUTEROL FS 2.5 MG/3 ML VIAL.NEB NEB SCH (16:04)
[2025-05-31 16:13] VITALS: O2SAT 100
[2025-05-31 16:20] VITALS: BP 105/65; TEMP 98.2; O2SAT 97
[2025-05-31 20:00] VITALS: BP 110/72; TEMP 97.5; O2SAT 97
[2025-06-01 04:00] VITALS: BP 99/51; TEMP 98.1; O2SAT 99
[2025-06-01 07:09] LABS: *SPE A/G RATIO 0.9 (0.7-1.7); *SPE ALBUMIN 2.9 g/dL (2.9-4.4); *SPE ALPHA-1-GLOBULIN 0.4 g/dL (0.0-0.4); *SPE ALPHA-2-GLOBULIN 0.9 g/dL (0.4-1.0); *SPE BETA GLOBULIN 0.9 g/dL (0.7-1.3); *SPE GLOBULIN, TOTAL 3.3 g/dL (2.2-3.9); *SPE M-SPIKE Not Observed g/dL (Not Observed); *SPE PROTEIN TOTAL 6.2 g/dL (6.0-8.5); *SPEGAMMA GLOBULIN 1.1 g/dL (0.4-1.8)
[2025-06-01 07:49] LABS: PLATELET COUNT (AUTO) 76 K/uL (150-450); RED BLOOD CELL COUNT(AUTO) 2.77 MIL/uL (4.5-6.0); RED CELL DISTRIBUTION WIDTH 16.6 % (11.5-15.0); WHITE BLOOD COUNT (AUTO) 5.9 K/uL (4.3-11.0)
[2025-06-01 07:51] LABS: FIBRINOGEN ACTIVITY 139.0 Mg/dL (213-485); INR 1.32 (0.91-1.10)
[2025-06-01 08:00] VITALS: BP 110/63; TEMP 97.9; O2SAT 100
[2025-06-01 08:11] LABS: ASPARTATE AMINOTRANSFERASE 27.0 U/L (15-37); CALCIUM, SERUM 9.9 mg/dL (8.5-10.1); CREATININE 3.4 mg/dL (0.6-1.3); PHOSPHORUS 3.9 mg/dL (2.5-4.9); SODIUM SERUM 144.0 mmol/L (136-145); TOTAL PROTEIN, SERUM 5.9 g/dL (6.4-8.2); UREA NITROGEN, BLOOD 51.0 mg/dL (7-18)
[2025-06-01 08:14] LABS: CREATINE KINASE, TOTAL 41.0 U/L (39-308)
[2025-06-01 11:39] LABS: BAND % (MANUAL) 2 % (0.0-5.0); LYMPHOCYTES % (MANUAL) 11 % (16-48); MONOCYTES % (MANUAL) 6 % (0-11.0); NEUTROPHILS % (MANUAL) 81 (42-76)
[2025-06-01 11:40] LABS: PLATELET ESTIMATE DECREASED
[2025-06-01 16:00] VITALS: BP 105/61; TEMP 98; O2SAT 99
[2025-06-01 20:00] VITALS: BP 92/70; TEMP 98.2; O2SAT 97
[2025-06-02] VITALS (8 sets, daily range): BP systolic 102–181; BP diastolic 54–67; TEMP 97.1–98.4; O2SAT 97–100
[2025-06-02 07:28] LABS: CALCIUM, SERUM 10.2 mg/dL (8.5-10.1); CREATININE 3.5 mg/dL (0.6-1.3); SODIUM SERUM 145.0 mmol/L (136-145); UREA NITROGEN, BLOOD 53.0 mg/dL (7-18)
[2025-06-02 08:07] LABS: PTH, INTACT 7 pg/mL (15-65)
[2025-06-02 08:29] LABS: FIBRINOGEN ACTIVITY 148 Mg/dL (213-485); INR 1.31 (0.91-1.10)
[2025-06-02 11:08] LABS: *HCV QUANTITATION HCV Not Detected IU/mL (.)
[2025-06-02] MEDS: POTASSIUM CL. PREMIX PERIPHER. 50 ML IV SCH (15:26)
[2025-06-02] MEDS ORDERED: IPRATROPIUM NEB FS 0.5 MG/2.5 ML AMPUL.NEB NEB PRN (17:00)
[2025-06-03] VITALS (9 sets, daily range): BP systolic 108–117; BP diastolic 64–75; TEMP 97.6–98.1; O2SAT 93–99
[2025-06-03 06:47] LABS: PLATELET COUNT (AUTO) 82 K/uL (150-450); RED BLOOD CELL COUNT(AUTO) 2.58 MIL/uL (4.5-6.0); RED CELL DISTRIBUTION WIDTH 16.8 % (11.5-15.0); WHITE BLOOD COUNT (AUTO) 6.5 K/uL (4.3-11.0)
[2025-06-03 07:11] LABS: FIBRINOGEN ACTIVITY 146 Mg/dL (213-485); INR 1.32 (0.91-1.10)
[2025-06-03 09:37] LABS: ASPARTATE AMINOTRANSFERASE 30.0 U/L (15-37); CALCIUM, SERUM 10.2 mg/dL (8.5-10.1); CREATININE 3.3 mg/dL (0.6-1.3); PHOSPHORUS 3.7 mg/dL (2.5-4.9); SODIUM SERUM 150.0 mmol/L (136-145); TOTAL PROTEIN, SERUM 6.0 g/dL (6.4-8.2); UREA NITROGEN, BLOOD 50.0 mg/dL (7-18)
[2025-06-03 12:51] LABS: LYMPHOCYTES % (MANUAL) 2 % (16-48); MONOCYTES % (MANUAL) 3 % (0-11.0); NEUTROPHILS % (MANUAL) 95 (42-76); PLATELET ESTIMATE DECREASED
[2025-06-03] MEDS: IV D5/0.45 NACL 1,000 ML IV PRN (15:22)
[2025-06-03] MEDS: ALBUTEROL FS 2.5 MG/0.5 ML VIAL.NEB NEB PRN (15:52)
[2025-06-03] MEDS: IPRATROPIUM NEB FS 0.5 MG/2.5 ML AMPUL.NEB NEB PRN (15:53)
[2025-06-04 04:00] VITALS: BP 111/70; TEMP 97.5; O2SAT 95
[2025-06-04 04:26] VITALS: BP 111/70; TEMP 97.5; O2SAT 95
[2025-06-04 07:32] LABS: CALCIUM, SERUM 10.3 mg/dL (8.5-10.1); CREATININE 2.9 mg/dL (0.6-1.3); SODIUM SERUM 145.0 mmol/L (136-145); UREA NITROGEN, BLOOD 45.0 mg/dL (7-18)
[2025-06-04 07:35] LABS: PLATELET COUNT (AUTO) 89 K/uL (150-450); RED BLOOD CELL COUNT(AUTO) 2.54 MIL/uL (4.5-6.0); RED CELL DISTRIBUTION WIDTH 17.2 % (11.5-15.0); WHITE BLOOD COUNT (AUTO) 7.0 K/uL (4.3-11.0)
[2025-06-04 07:39] LABS: FIBRINOGEN ACTIVITY 116 Mg/dL (213-485); INR 1.36 (0.91-1.10)
[2025-06-04 08:00] VITALS: BP 99/57; TEMP 98.5; O2SAT 94
[2025-06-04] MEDS: POTASSIUM CL. PREMIX PERIPHER. 50 ML IV SCH (10:21)
[2025-06-04 11:35] LABS: BASOPHILS % (MANUAL) 0 % (0.0-2.0); EOSINOPHILS % (MANUAL) 0 % (0-4); LYMPHOCYTES % (MANUAL) 6 % (16-48); MONOCYTES % (MANUAL) 8 % (0-11.0); NEUTROPHILS % (MANUAL) 86 (42-76); PLATELET ESTIMATE DECREASED
[2025-06-04] MEDS: ACETAMINOPHEN 325 MG TABLET PO ONE (15:00)
[2025-06-04 16:00] VITALS: BP 94/44; TEMP 98.3; O2SAT 94
[2025-06-04 20:00] VITALS: BP 103/66; TEMP 97.6; O2SAT 92
[2025-06-05 04:00] VITALS: BP 101/67; TEMP 97.2; O2SAT 94
[2025-06-05 07:04] LABS: PLATELET COUNT (AUTO) 112 K/uL (150-450); RED BLOOD CELL COUNT(AUTO) 2.58 MIL/uL (4.5-6.0); RED CELL DISTRIBUTION WIDTH 17.1 % (11.5-15.0); WHITE BLOOD COUNT (AUTO) 10.7 K/uL (4.3-11.0)
[2025-06-05 07:36] LABS: FIBRINOGEN ACTIVITY 109 Mg/dL (213-485); INR 1.39 (0.91-1.10)
[2025-06-05 08:00] VITALS: BP 109/77; TEMP 97.9; O2SAT 90
[2025-06-05 13:45] LABS: LYMPHOCYTES % (MANUAL) 2 % (16-48); MONOCYTES % (MANUAL) 5 % (0-11.0); NEUTROPHILS % (MANUAL) 93 (42-76); PLATELET ESTIMATE DECREASED
[2025-06-05 16:00] VITALS: BP 98/62; TEMP 97.7; O2SAT 99
[2025-06-05] MEDS ORDERED: MORPHINE SULFATE INJ 2 MG/ML DISP.SYRIN IV PRN (17:30)
[2025-06-06 08:12] LABS: *SPE A/G RATIO 0.9 (0.7-1.7); *SPE ALBUMIN 2.6 g/dL (2.9-4.4); *SPE ALPHA-1-GLOBULIN 0.4 g/dL (0.0-0.4); *SPE ALPHA-2-GLOBULIN 0.8 g/dL (0.4-1.0); *SPE BETA GLOBULIN 0.7 g/dL (0.7-1.3); *SPE GLOBULIN, TOTAL 2.8 g/dL (2.2-3.9); *SPE M-SPIKE Not Observed g/dL (Not Observed); *SPE PROTEIN TOTAL 5.4 g/dL (6.0-8.5); *SPEGAMMA GLOBULIN 0.9 g/dL (0.4-1.8)
== END 2025-06-05 18:04 | disposition hospice, inpatient (51) | DRG 711 ==
LOC: ER 10:10 → MEDSG1 14:44
PROVIDERS: ADMIT Nurse Practitioner Acute Care; ATTEND Nurse Practitioner Acute Care
PROC: 0WBH3ZX Excision of Retroperitoneum, Percutaneous Approach, Diagnostic (ICD-10-PCS; principal; 2025-05-29)
PROC: 0VBC0ZZ Excision of Bilateral Testes, Open Approach (ICD-10-PCS; 2025-05-31)
DX: C61 Malignant neoplasm of prostate (principal); E43 Unspecified severe protein-calorie malnutrition; J96.01 Acute respiratory failure with hypoxia; G93.41 Metabolic encephalopathy; C79.51 Secondary malignant neoplasm of bone; Z66 Do not resuscitate; D61.818 Other pancytopenia; C77.2 Secondary and unspecified malignant neoplasm of intra-abdominal lymph nodes; C77.5 Secondary and unspecified malignant neoplasm of intrapelvic lymph nodes; N17.9 Acute kidney failure, unspecified; D69.6 Thrombocytopenia, unspecified; K74.60 Unspecified cirrhosis of liver; I12.9 Hypertensive chronic kidney disease with stage 1 through stage 4 chronic kidney disease, or unspecified chronic kidney disease; N18.9 Chronic kidney disease, unspecified; E11.22 Type 2 diabetes mellitus with diabetic chronic kidney disease; F10.10 Alcohol abuse, uncomplicated; D63.8 Anemia in other chronic diseases classified elsewhere; N13.30 Unspecified hydronephrosis; E87.0 Hyperosmolality and hypernatremia; E88.09 Other disorders of plasma-protein metabolism, not elsewhere classified; E86.0 Dehydration; E83.42 Hypomagnesemia; N14.11 Contrast-induced nephropathy; R53.1 Weakness; I48.91 Unspecified atrial fibrillation; I89.0 Lymphedema, not elsewhere classified; K21.9 Gastro-esophageal reflux disease without esophagitis; R13.10 Dysphagia, unspecified; R62.7 Adult failure to thrive; R16.1 Splenomegaly, not elsewhere classified; R91.1 Solitary pulmonary nodule; Z68.21 Body mass index [BMI] 21.0-21.9, adult; N40.0 Benign prostatic hyperplasia without lower urinary tract symptoms; N50.0 Atrophy of testis
CPT/HCPCS: 31720; 36415; 71045-TC; 71260-TC; 76770-TC; 76870-TC; 77012-TC; 78306-TC; 80048-TC; 80053-TC; 80076-TC; 81001; 82105; 82378; 82550-TC; 82607-TC; 82728-TC; 82784; 83540-TC; 83615-TC; 83690-TC; 83735-TC; 83970; 84100-TC; 84153-TC; 84155; 84165; 84403; 84443-TC; 84484-TC; 84702-TC; 85027-TC; 85045-TC; 85396; 86140-TC; 86225; 86235; 86317; 86334; 86431-TC; 86704; 86803; 86850-TC; 87081-TC; 87086-TC; 87340; 87522; 87806; 88305-TC; 88333-TC; 88341; 88342; 92526; 92611; 94760-TC; 94799-TC; 97110-TC; 97116-TC; 97530-TC; 97535-TC; A4223; A6254; A6403; A9503; G0378; G0480; J0690; J1200; J1308; J2405; J2704; J3010; J3475; J3480; J3490; J7030; J7050; Q9967

== ENCOUNTER 2025-06-05 20:22 | Inpatient (IN) | payer OTHER ==
[2025-06-05 20:00] VITALS: BP 104/57; TEMP 98.4; O2SAT 96
[~2025-06-05 20:22] MED LIST changes: +ACET325T53 PO; +ASPI-1169 PO; -BENA40TA67 PO; +CRAN425C6 PO; +DIPH25TA62 PO; +DULO30CA2 PO; +FLUT16SP BNOSTRILS; +HYDR25TA4 PO; +IBUP-1953 PO; +LOPE2CAP40 PO; +MEGE20TA3 PO; +MELA10CA PO; +METF-440 PO; +MIRT7.5T10 PO; +MULT-213 PO; +PANT40TA49 PO; +TAMS-12 PO
[2025-06-05] MEDS ORDERED: Z GUARD REMEDY 4 OZ OINT TP PRN (22:00)
[2025-06-05] MEDS ORDERED: ONDANSETRON HCL/PF 4 MG/2 ML VIAL IVP PRN (22:00)
[2025-06-05] MEDS ORDERED: LORAZEPAM INJ 2 MG/ML VIAL IV PRN (22:00)
[2025-06-05] MEDS ORDERED: ACETAMINOPHEN 650 MG/SUPP.RECT RC PRN (22:00)
[2025-06-05] MEDS ORDERED: SCOPOLAMINE PATCH 1 MG/72HR TD ONE (22:32)
[2025-06-05] MEDS: SCOPOLAMINE PATCH 1 MG/72HR TD SCH (22:35)
[2025-06-05] MEDS: MORPHINE SULFATE INJ 2 MG/ML DISP.SYRIN IV PRN (22:41)
[2025-06-06 04:00] VITALS: BP 122/71; TEMP 97.7; O2SAT 99
[2025-06-06 07:32] LABS: PLATELET COUNT (AUTO) 75 K/uL (150-450); RED BLOOD CELL COUNT(AUTO) 2.49 MIL/uL (4.5-6.0); RED CELL DISTRIBUTION WIDTH 16.7 % (11.5-15.0); WHITE BLOOD COUNT (AUTO) 6.9 K/uL (4.3-11.0)
[2025-06-06 08:57] LABS: CALCIUM, SERUM 10.6 mg/dL (8.5-10.1); CREATININE 2.3 mg/dL (0.6-1.3); PHOSPHORUS 2.3 mg/dL (2.5-4.9); SODIUM SERUM 153.0 mmol/L (136-145); UREA NITROGEN, BLOOD 41.0 mg/dL (7-18)
[2025-06-06 12:00] VITALS: BP 108/64; TEMP 97.9; O2SAT 98
[2025-06-06 14:13] LABS: LYMPHOCYTES % (MANUAL) 4 % (16-48); MONOCYTES % (MANUAL) 2 % (0-11.0); NEUTROPHILS % (MANUAL) 94 (42-76); PLATELET ESTIMATE DECREASED
[2025-06-06 20:00] VITALS: BP 108/85; TEMP 98.2; O2SAT 94
[2025-06-07 04:00] VITALS: BP 107/63; TEMP 98.8; O2SAT 95
== END 2025-06-07 18:42 | DRG 862 ==
LOC: HOSPICE1 20:22
PROVIDERS: ADMIT Nurse Practitioner Family; ATTEND Internal Medicine
DX: Z51.5 Encounter for palliative care (principal); G93.40 Encephalopathy, unspecified; C79.89 Secondary malignant neoplasm of other specified sites; D68.59 Other primary thrombophilia; N17.9 Acute kidney failure, unspecified; R13.10 Dysphagia, unspecified; C61 Malignant neoplasm of prostate; K74.60 Unspecified cirrhosis of liver; D64.9 Anemia, unspecified; I10 Essential (primary) hypertension; E11.9 Type 2 diabetes mellitus without complications; E86.0 Dehydration; E78.5 Hyperlipidemia, unspecified; R53.1 Weakness
CPT/HCPCS: 36415; 80048-TC; 83735-TC; 84100-TC; 85027-TC; G0378; J2270; J3490